=== PATIENT | male | born 1950 | race Caucasian/White ===

== ENCOUNTER 2017-12-22 07:58 | Inpatient (IN) | payer MEDICARE, BC ==
[2017-12-22] MEDS ORDERED: Acetaminophen 500 MG TAB ONE (08:23)
[2017-12-22 08:48] LABS: #Basophils 0.1 thou/uL (0.0-0.2); #Lymphocytes 0.2 thou/uL (1.20-3.40); #Monocytes 0.6 thou/uL (0.11-0.59); #Neutrophils 4.5 thou/uL (1.40-6.50); %Basophils 1.7 % (0.0-1.0); %Eosinophils 0.5 % (0.0-10.0); %Lymphocytes 3.3 % (21.0-51.0); %Monocytes 10.5 % (0.0-10.0); %Neutrophils 84.1 % (42.0-75.0); Hemoglobin 11.2 g/dL (14.0-18.0); Mean Corpuscular Hemoglobin 32.1 pg (27.0-31.0); Mean Corpuscular Volume 91.7 fl (80.0-94.0); Mean Platelet Volume 6.2 fL (7.4-10.4); Platelet Count 222 thou/uL (130-400); RBC Distribution Width 11.2 % (11.5-14.5); Red Blood Cell (RBC) Count 3.49 mill/uL (4.70-6.10); White Blood Cell (WBC) Count 5.4 thou/uL (4.8-10.8)
[2017-12-22 08:58] LABS: ALT (SGPT) 28 U/L (8-55); AST (SGOT) 30 U/L (5-34); Albumin 3.4 g/dL (3.4-4.8); Alkaline Phosphatase 91 U/L (40-150); Anion Gap 15 mmol/L (10-20); BUN (Urea Nitrogen) 14 mg/dL (8.4-25.7); Bilirubin, Total 0.9 mg/dL (0.2-1.2); CK (CPK) 53 U/L (30-200); Calc. Creatinine Clearance 0 mL/min (70-130); Calcium 9.2 mg/dL (7.8-10.44); Carbon Dioxide 28 mmol/L (23-31); Chloride 93 mmol/L (98-107); Estimated GFR-MDRD 56; Glucose 123 mg/dL (80-115); Lipase 19 U/L (8-78); Potassium 4.3 mmol/L (3.5-5.1); Protein, Total 6.4 g/dL (5.8-8.1); Sodium 132 mmol/L (136-145)
[2017-12-22 08:59] LABS: CKMB 0.9 ng/mL (0-6.6); Troponin I 0.039 ng/mL (< 0.028)
--- NOTE | 2017-12-22 09:09 | RAD ---
CHEST ONE VIEW: History: Dyspnea, fever. Stage IV lung cancer, on chemotherapy. Comparison: Two view chest 01-19-17 FINDINGS: There is a large mass in the peripheral aspect of the right upper lobe and middle lobe. Volume loss o f the right lung. No pneumothorax. Layering right effusion. There are multiple areas of sclerosis, right peripheral ribs. Severe degenerative change in both glenohumeral joints. IMPRESSION: 1. Large peripheral right middle lobe and right upper lobe mass, layering effusion with volume loss o f right lung. 2. Area of sclerosis, right ribs, may represent metastatic disease or treatment changes. 3. Chronic changes in the left lung base. 4. Severe degenerative disease at both acromioclavicular and glenohumeral joints. POS: OFF
[2017-12-22 09:33] LABS: Bilirubin Negative (Negative); Blood, Urine Negative (Negative); Clarity Clear (Clear); Glucose, Urine (Dipstick) Negative (Negative); Leukocyte Negative (Negative); Nitrite Negative (Negative); Protein, Urine (Dipstick) 30 mg/dL (Neg-Trace); Urobilinogen 0.2 mg/dL (0.2-1.0); pH, Urine 5.5 (5.0-9.0)
[2017-12-22 09:39] LABS: Specific Gravity, Urine Greater than 1.030 (1.002-1.036)
[2017-12-22 09:41] LABS: Bacteria/HPF None Seen HPF (None Seen); RBC/HPF 0-3 HPF (0-3); Squamous Epithelial 0-3 HPF (0-3); WBC/HPF None Seen HPF (0-3)
--- NOTE | 2017-12-22 09:56 | CT ---
CTA CHEST WITH CONTRAST: Date: 12/22/17 HISTORY: Lung cancer. Dyspnea. Colitis. COMPARISON: CT chest with contrast dated 01/19/17. TECHNIQUE: CT angiogram chest performed after the intravenous administration of contrast. 3D rendering provided. FINDINGS: There is nonopacification of the anterior segment right upper lobe pulmonary artery, similar to the c omparison examination. This is likely chronically occluded. The apical and posterior segments of the right upper lobe pulmonary arterial system are patent. Right middle lobe and lower lobe segmental bra nches are patent. The anterior and apical posterior branches of the left lower lobe pulmonary arterie s are patent, as well as lingular and left lower lobe pulmonary arteries. The pulmonary trunk size is normal. No evidence of right heart strain. No reflux of contrast within t he suprahepatic IVC. Compared to the comparison examination, the right upper lobe bronchiectasis and mass effect from the mass has decreased The peripheral right upper lobe mass is size decreased, extending to the hilum. Ov erall, this mass measures 4.7 x 4.3 x 3.7 cm, much improved from 9.5 x 7.5 cm mass previously noted. There was a second mass in the right middle lobe on the comparison examination, which is decreased in size, with only some peripheral scarring remaining. The right upper lobe bronchi are aerated, previously nonaerated. There are extensive increased inters titial markings in the right lower lobe and right middle lobe, which could be post treatment in natur e. Chronic appearing changes in the left lung. Mild emphysematous change. There is atrophy of the rotator cuff musculature bilaterally. There is large right joint effusion. Se kelvin degenerative disease of the right humeral head and glenohumeral joint with numerous bodies. There is an area of sclerosis right anterior fourth rib, unchanged. There appears to be an area of sc lerosis, possibly old metastatic disease, of the lateral right fifth rib, similar. The osseous remode ling through what appears to be a pathologic fracture right posterior 10th rib is similar with loss o f normal cortex of the medullary cavity of the rib head and neck. This is not progressed. The 10th ri b costochondral junction has a healing fracture. No new left-sided rib abnormality. Thoracic vertebra metastatic disease burden is similar with sclerosis of the 6th, 8th, and 9th thorac ic vertebra. There is minimal worsened height loss of the 9th vertebral body. No definite new areas o f osseous metastatic disease. There is a hypodensity in hepatic segment 7, similar to the comparison examination. IMPRESSION: 1. Overall, marked interval size decrease of the right upper lobe masses, with improved aeration of right upper lobe bronchus. 2. 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 This is unchang ed from the comparison examination. 3. No new segmental pulmonary arterial filling defect. 4. Multiple pathologic rib fractures are healing from the comparison examination without definite ne w evidence of osseous metastatic disease. 5. Severe degenerative disease of both shoulder joints, much worse on right, with large subchondral cyst of the right humeral head with a fracture line, series 10, image 8. 6. Minimal further height loss T9 vertebral body, osseous metastatic disease. POS: OFF
[2017-12-22] MEDS ORDERED: Sodium Chloride 0.9% 1,000 ML IV SCH (12:03)
[2017-12-22] MEDS ORDERED: Iopamidol 370 76% 100 ML VIAL ONE (12:57)
[2017-12-22] MEDS ORDERED: Aspirin 81 mg Enteric Coated Tablet PO SCH (13:00)
[2017-12-22] MEDS ORDERED: Ondansetron ODT 4 MG TAB PO PRN (17:00)
[2017-12-22] MEDS ORDERED: hydrALAZINE 20 MG/ML VIAL SLOW IVP PRN (17:00)
[2017-12-22] MEDS ORDERED: Benzonatate 100 MG CAP PO PRN (17:00)
[2017-12-22] MEDS ORDERED: cloNIDine 0.1 MG TAB PO PRN (17:00)
[2017-12-22] MEDS ORDERED: Ondansetron HCl/PF 4 MG/2 ML Vial IVP PRN (17:00)
[2017-12-22 17:13] VITALS: BMI 27.8
[2017-12-22] MEDS: Acetaminophen 500 MG TAB PO PRN (17:44)
[2017-12-22] MEDS: Ketorolac Tromethamine 30 MG/ML VIAL IVP SCH (17:45)
[2017-12-22] MEDS: Sodium Chloride 0.9% 1,000 ML IV SCH (18:28)
[2017-12-22] MEDS: Cefepime 2 GM, Syringe 2.5 ML in Sterile Water 10 ML SLOW IVP SCH (18:30)
[2017-12-22] MEDS ORDERED: Cefepime 2 GM in Sodium Chloride 0.9% 100 ML IVPB SCH (21:00)
[2017-12-22] MEDS ORDERED: Loperamide HCl 2 MG CAP PO PRN (21:11)
[2017-12-22] MEDS: Vancomycin HCl 1 GM in Premix Bag 1 BAG IVPB SCH (21:40)
[2017-12-22] MEDS: Famotidine 20 MG TAB PO SCH (21:41)
[2017-12-22] MEDS: guaiFENesin ER 600 MG TAB PO SCH (21:41)
--- NOTE | 2017-12-22 22:11 | HP ---
DATE OF ADMISSION: 12/22/2017 PRIMARY CARE PROVIDER: Dr. Todd Liz. CHIEF COMPLAINT: Fever and shortness of breath. HISTORY OF PRESENT ILLNESS: This is a 67-year-old male who initially presented to [facility] complaining of fever up to 105 degrees Fahrenheit by digital forehead thermome ter. Patient states his took his temperature and became alarmed, calling his primary oncologist who directed him to seek medical attention at the emergency room. Patient is currently receiving tr eatment for a stage IV non-small cell lung carcinoma through [facility], undergoing clinical trial t herapy as well as treatment with Keytruda. The patient was scheduled for followup at [facility] as his last treatment was over 2 months prior to this evaluation. Patient states his treatment was inte rrupted after a bout of colitis treated with budesonide as well as a prednisone, finishing the steroi d therapy within the last 5 days. Patient states he has noticed increased shortness of breath over t he last 2 weeks, worsening in the last 24-48 hours. Patient denies any prominent cough, but does not e the fever and shortness of breath. Patient states he underwent evaluation for the colitis includin g a colonoscopy confirming colitis and instituted on steroid therapy. In the emergency room, patient was evaluated with initial temperature documented 101 degrees Fahrenheit. Patient underwent chest i maging showing evidence of right-sided tumor and questionable early infiltrate. Patient also underwe nt CT angiogram and imaging of the chest showing evidence of chronic occlusion of the right upper lob e pulmonary artery. No new segmental pulmonary arterial filling defects were noted. Patient was als o noted with interval decrease in the right upper lobe mass with improved aeration of the right upper lobe bronchus. Patient was also noted with multiple pathological rib fractures, healing from prior osseous metastatic process, but no evidence of new disease noted. Patient was also noted with hypoxe abigail, placed on oxygen supplementation after initial O2 saturation was noted in the low 80% range. Th e patient received IV normal saline as well as Levaquin and bronchodilator therapy with DuoNebs. Georgina thakur was transferred to [facility] for further evaluation. PAST MEDICAL HISTORY: 1. Stage IV non-small cell lung carcinoma with current chemotherapy including Keytruda. 2. Colitis secondary to chemotherapy, improved. 3. Hypertension. 4. Remote tobacco use. 5. History of prostate carcinoma, status post radiation and radiotherapy. PAST SURGICAL HISTORY: 1. Status post cervical spine fusion. 2. Status post lumbar spine fusion. 3. Status post left rotator cuff repair. CURRENT MEDICATIONS: 1. Metoprolol 12.5 mg p.o. b.i.d. 2. DuoNeb 3 mL nebulized q.i.d. p.r.n. 3. Zofran 8 mg p.o. t.i.d. p.r.n. 4. Vitamin C 500 mg p.o. daily. 5. Citracal with vitamin D 1 tablet p.o. daily. 6. Clonazepam 0.5 mg 1-2 tabs p.o. at bedtime p.r.n. insomnia. 7. Folic acid 0.4 mg p.o. daily. 8. Multivitamin 1 tab p.o. daily. ALLERGIES: No known drug allergies. FAMILY HISTORY: Father with diabetes. Mother after complications of cardiomyopathy related to drug and alcohol abuse. SOCIAL HISTORY: Patient is and resides in the [facility]. Owns a [employer]. Remote history of tobacco use, quitting over 30 years prior to this evaluation. Smoked for 20 y ears previous. No alcohol or illicit drug use. REVIEW OF SYSTEMS: The following complete review of systems was negative, unless otherwise mentioned in the HPI or below: Constitutional: Weight loss or gain, ability to conduct usual activities. Sk in: Rash, itching. Eyes: Double vision, pain. ENT/Mouth: Nose bleeding, neck stiffness, pain, te nderness. Cardiovascular: Palpitations, dyspnea on exertion, orthopnea. Respiratory: Shortness of breath, wheezing, cough, hemoptysis, fever or night sweats. Gastrointestinal: Poor appetite, abdom inal pain, heartburn, nausea, vomiting, constipation, or diarrhea. Genitourinary: Urgency, frequenc y, dysuria, nocturia. Musculoskeletal: Pain, swelling. Neurologic/Psychiatric: Anxiety, depressio n. Allergy/Immunologic: Skin rash, bleeding tendency. PHYSICAL EXAMINATION: VITAL SIGNS: On admission, blood pressure 157/76, pulse 110, respiratory rate 28, temperature 100.6 degrees Fahrenheit, O2 saturation 89% on room air. GENERAL APPEARANCE: This is a 67-year-old male, alert and oriented x3, pleasant, conversan t and in mild to moderate respiratory distress. HEENT: Pupils are equal, round, and reactive to light and accommodation. Extraocular muscles are in tact. No scleral icterus, no conjunctival injection. Nares patent. OP is clear. Oral mucosa dry. NECK: Supple. No cervical adenopathy, no thyromegaly, no carotid bruits, no JVD appreciated. Cervi liz spine with full active and passive range of motion. No meningeal signs appreciated. CHEST: Diminished breath sounds in the right lung base. Coarse breath sounds in the right lung base . Occasional expiratory wheeze noted. CARDIOVASCULAR: S1, S2 with tachycardia. ABDOMEN: Rounded, soft, nontender, nondistended. Bowel sounds are positive in all four quadrants. There is no hepatosplenomegaly, no abdominal bruits, no rebound or guarding appreciated. EXTREMITIES: Warm and dry with fair turgor. No clubbing, cyanosis or asymmetric edema appreciated. Pulses palpable distally at the dorsalis pedis, posterior tibial, and popliteal arteries bilaterally . Capillary refill less than 2 seconds. NEUROLOGIC: Cranial nerves II-XII are grossly intact. No focal or lateralizing signs appreciated. PERTINENT LABORATORY AND X-RAY FINDINGS: Sodium 132, potassium 4.3, chloride 93, CO2 of 28, BUN 14, creatinine 1.27, estimated GFR 56, glucose 123. Lactic acid level 1.3, calcium 9.2. LFTs within nor mal limits. Troponin I 0.039, BNP 114. Albumin 3.4, lipase 19. CBC showed a white blood cell count of 5.4, hemoglobin 11, hematocrit 32, platelet count 222 with 84% neutrophils. Urinalysis positive for protein. Influenza A and B antigen dated 12/22/2017 negative. Portable chest x-ray dated 2017 showed large peripheral right middle lobe and right upper lobe lung mass with layering effusion and volume loss of the right lung. Elevated right hemidiaphragm. Overall, volume loss of the right lung noted. Chronic changes of the left lung base noted. Sclerosis of the right ribs likely seconda ry to history of metastatic process. Severe degenerative changes of the acromioclavicular and glenoh umeral joints on the right. CT angiogram of the chest dated 12/22/2017 showed marked interval decrea se in size of the right upper lobe mass with improved aeration of the right upper lobe bronchus. Chr onic occlusion of the right upper lobe pulmonary artery. No new segmental pulmonary arterial filling defects. Multiple pathologic rib fractures, healing without evidence of new osseous metastatic proc ess. Severe degenerative joint disease. EKG dated 12/22/2017 shows sinus tachycardia with heart rat es in the 110s. Normal R-wave progression noted in the precordial leads. Right bundle-branch block pattern noted. Normal axis. No acute ST-T wave changes appreciated. ASSESSMENT AND PLAN: 1. Question of community-acquired pneumonia. Patient will be admitted to the telemetry unit. Suspe ct gram positive cocci given patient's history of lung carcinoma with anatomical changes and prior ra diation /chemotherapy with prior changes secondary to chemotherapy. We will continue broad spectrum IV antibiotic therapy with cefepime 2 grams IV q.12 hours with additional vancomycin 1 gram IV q.12 h ours, DuoNeb q.6 hours p.r.n. Continue intravenous fluids with normal saline at 100 mL per hour. Co ntinue general pulmonary supportive measures and monitor blood culture results. 2. Acute hypoxic respiratory failure. Suspect secondary to #1. We will continue oxygen supplementa tion to maintain O2 saturations greater than or equal to 90%. Continue bronchodilator therapy with D uoNebs. 3. Stage IV non-small cell lung carcinoma with current chemotherapy. We will continue supportive me asures as outlined previously. Oxygen supplementation to maintain O2 saturation greater than 90%. 4. Hyponatremia, mild. We will continue intravenous normal saline and repeat sodium level in the a. m. 5. Chronic normocytic anemia secondary to chemotherapy. No current evidence to suggest acute blood loss. Repeat CBC in the a.m. and monitor hemoglobin trend. 6. Hypertension. We will resume home antihypertensive regimen with metoprolol 12.5 mg p.o. b.i.d. 7. Prophylaxis. Sequential compression devices while in bed. Pepcid 20 mg p.o. b.i.d. Influenza a nd Pneumovax are up to date. 8. CODE STATUS is FULL. Surrogate medical decision maker is patient's spouse.
[2017-12-23] MEDS: Ketorolac Tromethamine 30 MG/ML VIAL IVP SCH ×5 (00:18→22:42)
[2017-12-23] MEDS: Sodium Chloride 0.9% 1,000 ML IV SCH ×2 (01:33→14:26)
[2017-12-23] MEDS: Cefepime 2 GM, Syringe 2.5 ML in Sterile Water 10 ML SLOW IVP SCH ×2 (05:36→18:40)
[2017-12-23 05:40] LABS: ALT (SGPT) 17 U/L (8-55); AST (SGOT) 22 U/L (5-34); Alkaline Phosphatase 75 U/L (40-150); Anion Gap 10 mmol/L (10-20); BUN (Urea Nitrogen) 14 mg/dL (8.4-25.7); Bilirubin, Total 0.8 mg/dL (0.2-1.2); Calc. Creatinine Clearance 67 mL/min (70-130); Calcium 8.4 mg/dL (7.8-10.44); Carbon Dioxide 26 mmol/L (23-31); Chloride 98 mmol/L (98-107); Estimated GFR-MDRD 58; Globulin 2.4 g/dL (2.4-3.5); Glucose 98 mg/dL (80-115); Potassium 3.7 mmol/L (3.5-5.1); Protein, Total 5.4 g/dL (5.8-8.1); Sodium 130 mmol/L (136-145)
[2017-12-23] MEDS: Acetaminophen 500 MG TAB PO PRN ×2 (05:44→20:09)
[2017-12-23 05:50] LABS: Band 28 % (5-11); Hemoglobin 10.2 g/dL (14.0-18.0); Lymphocytes 4 % (21-51); MDiff Complete? YES; Mean Corpuscular HGB CONC 33.3 g/dL (32.0-36.0); Mean Corpuscular Hemoglobin 32.6 pg (27.0-31.0); Mean Corpuscular Volume 97.7 fl (80.0-94.0); Mean Platelet Volume 6.5 fL (7.4-10.4); Monocytes 11 % (0-10); Neutrophil 57 % (42-75); Platelet Count 214 thou/uL (130-400); RBC Distribution Width 12.4 % (11.5-14.5); Red Blood Cell (RBC) Count 3.14 mill/uL (4.70-6.10); White Blood Cell (WBC) Count 3.6 thou/uL (4.8-10.8)
[2017-12-23] MEDS ORDERED: FLU VACC TS2017-18 (>65YR) 0.5 ML SYRINGE IM ONE (09:00)
[2017-12-23] MEDS ORDERED: Prevnar 13-Val Conj/PF 0.5 ML SYRINGE IM ONE (09:00)
[2017-12-23] MEDS: Multivitamin W/ Minerals 1 TAB PO SCH (10:33)
[2017-12-23] MEDS: Ascorbic Acid 500 mg Chewable Tablet PO SCH (10:33)
[2017-12-23] MEDS: guaiFENesin ER 600 MG TAB PO SCH ×2 (10:35→20:03)
[2017-12-23] MEDS: Famotidine 20 MG TAB PO SCH ×2 (10:35→20:05)
[2017-12-23] MEDS: Senokot 8.6 MG TAB PO SCH (10:35)
[2017-12-23] MEDS: Calcium Carbonate + Vit D 1 TAB PO SCH (10:35)
[2017-12-23] MEDS: Folic Acid 1 MG TAB PO SCH (10:35)
--- NOTE | 2017-12-23 10:42 | PDOC.PN ---
- Subjective Encounter Start Date: 12/23/17 Encounter Start Time: 10:10 Subjective: f/u for febrile illness and suspected PNA in context of NSCLC and chemotx. -: Feels better overall. Fever spike overnight with some chills. Initial blood -: cx and Influenza neg. - Objective Resuscitation Status: Resuscitation Status FULL:Full Resuscitation MAR Reviewed: Yes Vital Signs & Weight: Vital Signs (12 hours) Temp Pulse Resp BP BP Pulse Ox 12/23/17 07:19 97 12/23/17 07:17 99.3 F 104 H 20 136/67 98 12/23/17 06:38 100.5 F H 12/23/17 05:41 102.7 F H 109 H 20 138/69 93 L 12/23/17 00:09 97.8 F 89 20 133/71 95 Weight Weight 183 lb 6 oz I&O: 12/22/17 12/23/17 12/24/17 06:59 06:59 06:59 Intake Total 3940 Balance 3940 Result Diagrams: 12/23/17 04:38 12/23/17 04:38 Additional Labs: Microbiology 12/22/17 08:20 Nasal swab Influenza Types A,B Direct EIA - Final 12/22/17 09:20 Urine voided Urine Culture - Preliminary 12/22/17 08:36 Venous blood - Left Arm Blood Culture - Preliminary Specimen has been received and culture in progress. No Growth to date. 12/22/17 08:29 Venous blood - Left Arm Blood Culture - Preliminary Specimen has been received and culture in progress. No Growth to date. Laboratory Tests 12/22/17 12/22/17 12/23/17 08:29 08:29 04:38 WBC 5.4 Hgb 11.2 L Neutrophils % (Manual) 57 Band Neuts % (Manual) 28 H Sodium 132 L EKG Reviewed by me: Yes (Tele - SR) Phys Exam - Physical Examination Constitutional: NAD HEENT: PERRLA, oral pharynx no lesions Neck: no JVD, supple scattered rhonchi in R lung base Respiratory: no wheezing Cardiovascular: RRR Gastrointestinal: soft, non-tender, no distention, positive bowel sounds Musculoskeletal: no edema, pulses present Neurological: normal sensation, moves all 4 limbs Psychiatric: A&O x 3 Skin: normal turgor, cap refill <2 seconds Dx/Plan (1) Community acquired bacterial pneumonia Code(s): J15.9 - UNSPECIFIED BACTERIAL PNEUMONIA Status: Acute Comment: Suspected gm + cocci, continue Cefepime and Vancomycin, add Levaquin due to fever elevation, await final cx results, viral pathogen PCR pending (2) Acute respiratory failure with hypoxia Code(s): J96.01 - ACUTE RESPIRATORY FAILURE WITH HYPOXIA Status: Acute Comment: Continue O2 supplementation and titrate to clinical response, Angela (3) Non-small cell carcinoma of left lung, stage 4 Code(s): C34.92 - MALIGNANT NEOPLASM OF UNSP PART OF LEFT BRONCHUS OR LUNG Status: Chronic Comment: Chemotherapy on hold due to recent colitis and now current PNA, resume tx after infectious process resolves (4) Hyponatremia Code(s): E87.1 - HYPO-OSMOLALITY AND HYPONATREMIA Status: Chronic Comment: Mild, encourage reg diet (5) Normocytic anemia Code(s): D64.9 - ANEMIA, UNSPECIFIED Status: Chronic Comment: Stable, serial H/H - Plan plan discussed w/ family, continue antibiotics, director of social work, respiratory therapy, out of bed/ambulate, DVT proph w/SCDs Stable overall -: Add Levaquin 750mg IV daily -: Continue Cefepime and Vancomycin -: Saline lock IVF's -: Consult Pulmonology * AM lab: CBC * Start Florastor 250mg daily * Check stool studies, C. diff, cx, lactoferrin
[2017-12-23] MEDS ORDERED: Saccharomyces boulardii 250 MG CAP PO SCH ×2 (11:00→12:00)
[2017-12-23] MEDS: Vancomycin HCl 1 GM in Premix Bag 1 BAG IVPB SCH (12:32)
[2017-12-23] MEDS: metroNIDAZOLE 500 MG TAB PO SCH (20:15)
--- NOTE | 2017-12-23 23:14 | CON ---
DATE OF CONSULTATION: 12/23/2017 SERVICE: Pulmonary Medicine. REASON FOR CONSULTATION: Respiratory failure. HISTORY OF PRESENT ILLNESS: The patient is a 67-year-old white male with past medical history significant for extensive stage IV adenocarcinoma. He failed multiple rounds of chemotherapy and ultimately, had progression of disease. He was placed on Keytruda, and a trial drug at [facility]. Since then, he has had resolution of much of his cancer involvement. He chronically is short of breath. The patient has a nonfunctioning right diaphragm. He previously had occlusion of much of the right upper lobe, which is actually improving slightly. In this setting, he started feeling a lack of energy over the last couple of days. His shortness of breath specifically did not get too much worse. He was not coughing or bringing up any significant sputum. His took his temperature and his thermometer rate of 105 degrees. They repeated the temperature in the emergency department and he was 102 degrees despite the fact that his home thermometer once again reported of 104 degree temperature. He has not had any sick contacts. He recently finished a course of prednisone that has been tapered away over the past several weeks. He has had a recurrence of his diarrhea since discontinuing the prednisone starting yesterday. Otherwise, he denies any focalizing symptoms. He has not had any itchy watery eyes, sore throat, drainage from the back of the nose or throat, arthralgias, or new rashes. PAST MEDICAL HISTORY: 1. Adenocarcinoma of the lung, widely metastatic. 2. Hypertension. 3. History of tobacco abuse. 4. History of prostate cancer, status radiotherapy. PAST SURGICAL HISTORY: 1. C-spine fusion. 2. Lumbar spine fusion. 3. Left rotator cuff repair. ALLERGIES: No known drug allergies. MEDICATIONS: List of his inpatient medications were reviewed. A couple of small updates were only made. FAMILY HISTORY: Noncontributory. SOCIAL HISTORY: The patient is and lives in [place], [place]. He has a 20- pack-year history of smoking, but quit 30 years ago. Denies any alcohol or illicit drugs. He has no exposure to chemicals, dust asbestos or tuberculosis. He owns a construction business. REVIEW OF SYSTEMS: General, head, ears, eyes, nose, throat, cardiovascular, respiratory, GI, , musculoskeletal, neurologic and skin is negative except as mentioned in the HPI. PHYSICAL EXAMINATION: VITAL SIGNS: Currently afebrile. His T-max over the past 24 hours has been 102.7, pulse 100, blood pressure 113/63, respirations 20, saturation 91% on room air. GENERAL: The patient is awake and alert, in no apparent distress. LUNGS: Decent air entry on the left. There is decreased air entry on the right. No prolonged expiratory phase, wheezing, rhonchi, or crackles are appreciated. HEART: Normal rate, regular. ABDOMEN: Soft, nontender, nondistended. Bowel sounds are positive. MUSCULOSKELETAL: No cyanosis or clubbing. No pitting in the bilateral lower extremities. NEUROLOGIC: Grossly nonfocal. LABORATORY DATA: WBC 3.6, hemoglobin 10.2, platelets 214,000. Band count is 28 % on top of 57% neutrophils. Basic metabolic profile and liver function studies are unremarkable except for sodium of 130. Troponin is 0.039. Lipase is 19. BNP . Urinalysis is unremarkable. Respiratory virus pathogen assay is unremarkable. Urine culture and blood cultures x2 were negative to date. Influenza A and B is also negative. IMAGING: CTA of the chest demonstrates no evidence of acute pulmonary embolism. There is chronic occlusion of the right upper lobe pulmonary artery anterior and apical segments. This is unchanged from a prior evaluation. There was marked improvement in the right lung masses. Improved aeration of the right upper lobe. No obvious infiltrate or effusion is identified. Healed rib fractures are identified. ASSESSMENT: 1. Sepsis. 2. Fever of unknown origin. 3. Diarrhea. 4. Adenocarcinoma of the lung, widely metastatic on trial medication, and Keytruda. PLAN: The patient is doing fairly well at this time. His only focalizing symptom currently is diarrhea, we will send off for C. difficile antigen and toxin. I will discontinue the IV vancomycin and add Flagyl. We will follow cultures and otherwise continue general supportive care. Pulmonary Critical Care will continue to follow while the patient remains in this location. IV fluids will be interrupted. ABG will be obtained to see if the patient is a chronic CO2 retainer given his paralysis of the right hemidiaphragm. 70 minutes have been devoted to this patient in various activities. I personally reviewed all imaging studies and laboratory data noted within this document. For at least half of this time, I was interacting with the patient at the bedside or coordinating care with the care team. For the remainder of the time I was immediately available to the patient in the hospital unit. THERESA
[2017-12-24 00:06] LABS: Actual Bicarbonate (HCO3a) 21.5 mEq/L (22-26); Base Excess (BEa) -2.1 mEq/L (0 (+/-) 2.5); CO2 Tension 32.1 mmHg (35.0-45.0); O2 Tension (PaO2) 80.7 mmHg (80.0-100.0); pH, Arterial 7.44 (7.35-7.45)
[2017-12-24 00:07] LABS: Hemoglobin (Hb) 8.6 g/dL (14.0-18.0)
[2017-12-24 00:08] LABS: ALV-art Gradient 105.735 (0-20); Calcium, Ionized 1.1 mmol/L (1.12-1.30); Puncture Site RRA
[2017-12-24] MEDS: Ketorolac Tromethamine 30 MG/ML VIAL IVP SCH ×3 (06:43→18:29)
[2017-12-24] MEDS: Cefepime 2 GM, Syringe 2.5 ML in Sterile Water 10 ML SLOW IVP SCH ×2 (06:43→18:30)
[2017-12-24] MEDS: Ascorbic Acid 500 mg Chewable Tablet PO SCH (09:12)
[2017-12-24] MEDS: guaiFENesin ER 600 MG TAB PO SCH ×2 (09:13→21:44)
[2017-12-24] MEDS: Famotidine 20 MG TAB PO SCH ×2 (09:13→21:44)
[2017-12-24] MEDS: Saccharomyces boulardii 250 MG CAP PO SCH (09:13)
[2017-12-24] MEDS: Senokot 8.6 MG TAB PO SCH (09:13)
[2017-12-24] MEDS: metroNIDAZOLE 500 MG TAB PO SCH ×3 (09:13→21:44)
[2017-12-24] MEDS: Multivitamin W/ Minerals 1 TAB PO SCH (09:14)
[2017-12-24] MEDS: Folic Acid 1 MG TAB PO SCH (09:14)
[2017-12-24] MEDS: Calcium Carbonate + Vit D 1 TAB PO SCH (09:14)
[2017-12-24] MEDS: Acetaminophen 500 MG TAB PO PRN (14:08)
[2017-12-24] MEDS ORDERED: Furosemide 20 MG/2 ML VIAL SLOW IVP SCH (16:30)
[2017-12-24 16:49] LABS: Troponin I 0.051 ng/mL (< 0.028)
--- NOTE | 2017-12-24 17:02 | PRG ---
DATE OF SERVICE: 12/24/2017 SERVICE: Pulmonary Medicine. INTERVAL HISTORY: The patient is doing fine from a respiratory standpoint. He denies any chest pain, nausea or vomiting. He is continuing to have some intermittent episodes of diarrhea. He had an episode of fever associated with some shortness of breath when he went to the bathroom. After getting his oxygen back on, and lying down, he settled down after about 2-3 minutes. Otherwise, there has been no interval change to his condition. PHYSICAL EXAMINATION: VITAL SIGNS: Afebrile currently with a T-max of 99.8. Pulse 93, blood pressure 120/68, respirations 22, saturation 95% on 3 liters nasal cannula. GENERAL: The patient is awake and alert, in no apparent distress. LUNGS: Decent air entry. There is no prolonged expiratory phase or wheezing identified. Decreased air entry is present on the right with crackles there. He has excellent air entry on the left. HEART: Normal rate, regular. ABDOMEN: Soft, nontender, nondistended. Bowel sounds are positive. MUSCULOSKELETAL: No cyanosis or clubbing. There is trace to 1+ pitting in the bilateral lower extremities. LABORATORY DATA: Urinalysis is unremarkable. C. diff antigen and toxin were negative. Stool lactoferrin is positive. Campylobacter and Shiga toxins are negative. Respiratory virus panel is unremarkable. Urinalysis, blood cultures x2 and influenza A and B are negative. ASSESSMENT: 1. Sepsis. 2. Diarrhea. 3. Fever without focalizing symptoms. 4. Adenocarcinoma of the lung, widely metastatic on trial medication and Keytruda. 5. Recent colitis associated with one of those medications that responded to steroid therapy. DISCUSSION AND PLAN: We will continue our empiric antibiotics and other supportive measures. The patient is requesting an ID consultation because he recently had some travel. We will give him 1 dose of Lasix today. Pulmonary Critical Care will continue to follow while the patient remains in this location. The blood gas was not associate with chronic CO2 retention. MTDD
[2017-12-24 18:26] LABS: % Infected Cells W/Parasite No parasites seen
--- NOTE | 2017-12-24 23:31 | PDOC.PN ---
- Subjective Encounter Start Date: 12/24/17 Encounter Start Time: 17:00 Subjective: nsg notes rev, another febrile episode this afternoon. @ bedside -: reviewed H&P notable additions: 2 mos ago was on cruise to [place], no -: overt sick contacts. also recently D/C off prednisone - Objective Resuscitation Status: Resuscitation Status FULL:Full Resuscitation Vital Signs & Weight: Vital Signs (12 hours) Temp Pulse Resp BP Pulse Ox 12/24/17 15:40 95 12/24/17 15:37 99.8 F H 93 22 H 120/68 95 12/24/17 14:00 102.5 F H 12/24/17 12:48 97 12/24/17 12:42 108 H 24 H 12/24/17 12:22 26 H 82 L 12/24/17 11:50 99.3 F 99 22 H 128/66 Weight Weight 183 lb 6 oz I&O: 12/23/17 12/24/17 12/25/17 06:59 06:59 06:59 Intake Total 3940 1101 1000 Output Total 50 Balance 3940 1101 950 Result Diagrams: 12/23/17 04:38 12/23/17 04:38 Phys Exam - Physical Examination Constitutional: NAD HEENT: PERRLA, moist MMs Neck: no nodes, no JVD Respiratory: no rales, no rhonchi Cardiovascular: RRR, no significant murmur, no rub Gastrointestinal: soft, non-tender, no distention, positive bowel sounds Musculoskeletal: no edema, pulses present Neurological: moves all 4 limbs Psychiatric: normal affect, A&O x 3 Skin: normal turgor, cap refill <2 seconds Dx/Plan (1) Acute respiratory failure with hypoxia Code(s): J96.01 - ACUTE RESPIRATORY FAILURE WITH HYPOXIA Status: Acute Comment: Continue O2 supplementation and titrate to clinical response, Angela (2) Non-small cell carcinoma of left lung, stage 4 Code(s): C34.92 - MALIGNANT NEOPLASM OF UNSP PART OF LEFT BRONCHUS OR LUNG Status: Chronic Comment: Chemotherapy on hold due to recent colitis and now current PNA, resume tx after infectious process resolves (3) Lung cancer Code(s): C34.90 - MALIGNANT NEOPLASM OF UNSP PART OF UNSP BRONCHUS OR LUNG Status: Chronic Qualifiers: Laterality: right Lung location: upper lobe of lung Qualified Code(s): C34.11 - Malignant neoplasm of upper lobe, right bronchus or lung Comment: on Chemo (4) Arrhythmia Code(s): I49.9 - CARDIAC ARRHYTHMIA, UNSPECIFIED Status: Resolved Qualifiers: Atrial fibrillation type: unspecified - Plan * febrile illness * recurrent despite empiric abx which currently incl: vanc, cef, levaquin, flagyl for coverage * ? related to steroid taper off too rapidly? * ? atypical infection? appreciate ID c/s * ? fungal due to relative immunosuppressed state from 8 wks oral prednisone therapy at 20mg+ * check: HIV, hepatitis panel, viral panel, quantiferon gold, AM cortosl * resume prednisone 20 * empiric diflucan * d/w pulmonary med today, d/w patient's (greater 30 min spent at bedside discussing plan of care) * Review of Systems - Medications/Allergies Allergies/Adverse Reactions: Allergies Allergy/AdvReac Type Severity Reaction Status Date / Time No Known Allergies Allergy Verified 12/22/17 16:18 Medications: Current Medications Acetaminophen (Tylenol) 1,000 mg PO Q6H PRN PRN Reason: Headache/Fever or Mild Pain Last Admin: 12/24/17 14:08 Dose: 1,000 mg Albuterol/Ipratropium (Duoneb) 3 ml NEB [id number] PRN PRN Reason: SOB &/or Wheezing Last Admin: 12/24/17 12:42 Dose: 3 ml Ascorbic Acid (Vitamin C) 500 mg PO DAILY [facility] Last Admin: 12/24/17 09:12 Dose: Not Given Calcium/Vitamin D (Caltrate 600 + Vit D) 1 tab PO DAILY [facility] Last Admin: 12/24/17 09:14 Dose: 1 tab Clonazepam (Klonopin) 0.5 mg PO HSPRN PRN PRN Reason: Insomnia Clonidine (Catapres) 0.1 mg PO Q4H PRN PRN Reason: Systolic BP > 180 Famotidine (Pepcid) 20 mg PO BID [facility] Last Admin: 12/24/17 21:44 Dose: 20 mg Folic Acid (Folvite) 1 mg PO DAILY [facility] Last Admin: 12/24/17 09:14 Dose: Not Given Guaifenesin (Mucinex) 1,200 mg PO Q12HR [facility] Last Admin: 12/24/17 21:44 Dose: 1,200 mg Hydralazine HCl (Apresoline) 10 mg SLOW IVP Q4H PRN PRN Reason: Systolic BP > 180 Cefepime HCl 2 gm/ Syringe 2.5 (ml/ Sterile Water) 12.5 mls @ 150 mls/hr SLOW IVP 0600,1800 [facility] Last Admin: 12/24/17 18:30 Dose: 12.5 mls Levofloxacin 750 mg/ Device 150 mls @ 100 mls/hr IVPB Q24HR [facility] Last Admin: 12/24/17 09:26 Dose: 150 mls Fluconazole/Sodium Chloride (200 mg/ Device) 100 mls @ 100 mls/hr IVPB DAILY [facility] Iron/Minerals/Multivitamins (Theragran M) 1 tab PO DAILY [facility] Last Admin: 12/24/17 09:14 Dose: 1 tab Ketorolac Tromethamine (Toradol) 30 mg IVP Q6HR [facility] Stop: 12/27/17 18:01 Last Admin: 12/24/17 18:29 Dose: 30 mg Loperamide HCl (Imodium) 2 mg PO Q8H PRN PRN Reason: Diarrhea/Loose Stools Last Admin: 12/23/17 05:55 Dose: 2 mg Metoprolol Succinate (Toprol Xl) 12.5 mg PO BID [facility] Last Admin: 12/24/17 21:44 Dose: 12.5 mg Metronidazole (Flagyl) 500 mg PO TID [facility] Last Admin: 12/24/17 21:44 Dose: 500 mg Ondansetron HCl (Zofran Odt) 4 mg PO Q6H PRN PRN Reason: Nausea/Vomiting Ondansetron HCl (Zofran) 4 mg IVP Q6H PRN PRN Reason: Nausea/Vomiting Prednisone (Prednisone) 20 mg PO QAM[facility] Saccharomyces Boulardii (Florastor) 250 mg PO DAILY [facility] Last Admin: 12/24/17 09:13 Dose: 250 mg Senna (Senokot) 1 tab PO DAILY [facility] Last Admin: 12/24/17 09:13 Dose: Not Given Sodium Chloride (Flush - Normal Saline) 10 ml IVF Q12HR [facility] Last Admin: 12/24/17 21:45 Dose: 10 ml Sodium Chloride (Flush - Normal Saline) 10 ml IVF PRN PRN PRN Reason: Saline Flush
[2017-12-25] MEDS: Ketorolac Tromethamine 30 MG/ML VIAL IVP SCH ×4 (00:29→18:05)
[2017-12-25] MEDS: clonazePAM 0.5 MG TAB PO PRN ×2 (00:31→20:42)
[2017-12-25] MEDS: Cefepime 2 GM, Syringe 2.5 ML in Sterile Water 10 ML SLOW IVP SCH ×2 (06:02→18:05)
[2017-12-25] MEDS ORDERED: Fluconazole In NaCl,Iso-Osm 200 MG in Premix Bag 1 BAG IVPB SCH (09:00)
[2017-12-25 09:04] LABS: ALT (SGPT) 16 U/L (8-55); AST (SGOT) 23 U/L (5-34); Albumin 3.1 g/dL (3.4-4.8); Alkaline Phosphatase 88 U/L (40-150); Anion Gap 14 mmol/L (10-20); BUN (Urea Nitrogen) 19 mg/dL (8.4-25.7); Bilirubin, Total 0.6 mg/dL (0.2-1.2); Calc. Creatinine Clearance 60 mL/min (70-130); Calcium 9.4 mg/dL (7.8-10.44); Carbon Dioxide 23 mmol/L (23-31); Chloride 100 mmol/L (98-107); Estimated GFR-MDRD 52; Globulin 2.8 g/dL (2.4-3.5); Glucose 102 mg/dL (80-115); Protein, Total 5.9 g/dL (5.8-8.1); Sodium 133 mmol/L (136-145)
[2017-12-25 09:24] LABS: HBSAg Index 0.23 S/CO (0-0.99); HIV (1/2) Antibody/Antigen Non-Reactive (NonReactive); HIV 1/2 INDEX 0.19 S/CO (<1.00); Hep A IgM AB Non-Reactive (NonReactive); Hep A IgM S/CO 0.09 S/CO (0-0.79); Hep B Surf Ag Non-Reactive S/CO (NonReactive); Hep C IgG Ab Non-Reactive (NonReactive); Hep C Index 0.09 S/CO (0-0.79); Hepatitis B Core IGM Abs Non-Reactive (NonReactive)
[2017-12-25 09:31] LABS: Band 31 % (5-11); Eosinophils 2 % (0-10); Hemoglobin 10.3 g/dL (14.0-18.0); Lymphocytes 7 % (21-51); MDiff Complete? YES; Mean Corpuscular HGB CONC 33.3 g/dL (32.0-36.0); Mean Corpuscular Hemoglobin 32.9 pg (27.0-31.0); Mean Corpuscular Volume 98.5 fl (80.0-94.0); Mean Platelet Volume 6.3 fL (7.4-10.4); Monocytes 4 % (0-10); Neutrophil 56 % (42-75); Platelet Count 302 thou/uL (130-400); RBC Distribution Width 12.6 % (11.5-14.5); Red Blood Cell (RBC) Count 3.14 mill/uL (4.70-6.10); White Blood Cell (WBC) Count 4.2 thou/uL (4.8-10.8)
[2017-12-25] MEDS: Senokot 8.6 MG TAB PO SCH (11:17)
[2017-12-25] MEDS: guaiFENesin ER 600 MG TAB PO SCH ×2 (11:17→20:40)
[2017-12-25] MEDS: Saccharomyces boulardii 250 MG CAP PO SCH (11:17)
[2017-12-25] MEDS: Ascorbic Acid 500 mg Chewable Tablet PO SCH (11:17)
[2017-12-25] MEDS: Calcium Carbonate + Vit D 1 TAB PO SCH (11:18)
[2017-12-25] MEDS: metroNIDAZOLE 500 MG TAB PO SCH (11:18)
[2017-12-25] MEDS: Folic Acid 1 MG TAB PO SCH (11:20)
[2017-12-25] MEDS: Famotidine 20 MG TAB PO SCH ×2 (11:24→20:40)
[2017-12-25] MEDS: Multivitamin W/ Minerals 1 TAB PO SCH (11:24)
[2017-12-25] MEDS: predniSONE 20 MG TAB PO SCH (11:26)
--- NOTE | 2017-12-25 12:02 | CT ---
ABDOMEN AND PELVIC CT SCAN WITH IV CONTRAST: HISTORY: A 69-9yo male with fever and diarrhea. History of prostate CA and stage IV lung cancer with concern for colonic abscess. There is prominent elevation of the right hemidiaphragm. There are pleural and parenchymal changes, particularly in the right lower chest with an approximately 3 cm diameter pleur al mass at the level of the right minor fissure. A small 0.3 cm diameter pleural-based nodule in the lingula laterally. There are several areas of rib deformity possibly related to old trauma, althoug h with the history of lung cancer it is conceivable some of these changes could possibly represent so me metastatic bone changes. There is an irregularly shaped 0.8 cm diameter focal low attenuation are a in the upper right lobe of the liver, nonspecific. The pancreas, spleen, and adrenal glands are un remarkable. No evidence of renal calculus or acute obstruction. No CT evidence for acute appendi citis. Sclerotic bone changes in several of the lumbar vertebral bodies including L2, L3, and L4 as well as a more extensive area of abnormal heterogeneous sclerotic change within the T8 vertebral body . The T8 vertebral body is certainly suspicious for bone metastasis. No evidence of large or small bowel obstruction. No adenopathy, abscess, or abnormal fluid collection within the abdomen or pelvis . Bilateral fat-containing inguinal hernias. IMPRESSION: Right hemidiaphragm elevation with some pleural and parenchymal opacity changes in the right base wit h a several centimeter nodular focus near the level of the right minor fissure. Bone changes worriso me for the possibility of metastasis. A 0.8 cm diameter nonspecific low-attenuation focus in the med ial right lobe of the liver. Postoperative prostatectomy changes with numerous radiation implant see ds. Other findings as above. POS: DERECK
[2017-12-25] MEDS ORDERED: Cosyntropin 250 MCG VIAL SLOW IVP SCH (15:30)
[2017-12-25] MEDS: Acetaminophen 500 MG TAB PO PRN (16:07)
--- NOTE | 2017-12-25 16:32 | PDOC.PN ---
- Subjective Encounter Start Date: 12/25/17 Encounter Start Time: 16:31 Subjective: nsg notes rev, kayla ovn, no new c/o, no further fevers today, overall feels -: better, is on RA. states he discussed with his and does not want to -: take any more prednisone because he is doing better - Objective Resuscitation Status: Resuscitation Status FULL:Full Resuscitation Vital Signs & Weight: Vital Signs (12 hours) Temp Pulse Resp BP Pulse Ox 12/25/17 12:00 97.5 F L 104 H 17 124/68 93 L 12/25/17 08:00 97.0 F L 96 18 119/63 92 L Weight Weight 184 lb I&O: 12/24/17 12/25/17 12/26/17 06:59 06:59 06:59 Intake Total 1101 1480 480 Output Total 50 Balance 1101 1430 480 Result Diagrams: 12/25/17 08:22 12/25/17 08:22 Phys Exam - Physical Examination Constitutional: NAD HEENT: PERRLA, moist MMs Respiratory: no wheezing, no rales Dx/Plan (1) Acute respiratory failure with hypoxia Code(s): J96.01 - ACUTE RESPIRATORY FAILURE WITH HYPOXIA Status: Acute Comment: Continue O2 supplementation and titrate to clinical response, Angela (2) Non-small cell carcinoma of left lung, stage 4 Code(s): C34.92 - MALIGNANT NEOPLASM OF UNSP PART OF LEFT BRONCHUS OR LUNG Status: Chronic Comment: Chemotherapy on hold due to recent colitis and now current PNA, resume tx after infectious process resolves (3) Lung cancer Code(s): C34.90 - MALIGNANT NEOPLASM OF UNSP PART OF UNSP BRONCHUS OR LUNG Status: Chronic Qualifiers: Laterality: right Lung location: upper lobe of lung Qualified Code(s): C34.11 - Malignant neoplasm of upper lobe, right bronchus or lung Comment: on Chemo - Plan * * febrile illness * recurrent despite empiric abx which currently incl: vanc, cef, levaquin, flagyl, diflucan * ? atypical infection? appreciate ID c/s * the following are all neg: HIV, hepatitis panel, viral panel, quantiferon gold * d/c prednisone which may be resonable as AM cortisol wnl otherwise continue supportive care * wean O2 as tone, t/c ICS diet: as tone activity: as tone Review of Systems - Medications/Allergies Allergies/Adverse Reactions: Allergies Allergy/AdvReac Type Severity Reaction Status Date / Time No Known Allergies Allergy Verified 12/22/17 16:18 Medications: Current Medications Acetaminophen (Tylenol) 1,000 mg PO Q6H PRN PRN Reason: Headache/Fever or Mild Pain Last Admin: 12/25/17 16:07 Dose: 1,000 mg Albuterol/Ipratropium (Duoneb) 3 ml NEB [id number] PRN PRN Reason: SOB &/or Wheezing Last Admin: 12/24/17 12:42 Dose: 3 ml Ascorbic Acid (Vitamin C) 500 mg PO DAILY [facility] Last Admin: 12/25/17 11:17 Dose: 500 mg Calcium/Vitamin D (Caltrate 600 + Vit D) 1 tab PO DAILY [facility] Last Admin: 12/25/17 11:18 Dose: 1 tab Clonazepam (Klonopin) 0.5 mg PO HSPRN PRN PRN Reason: Insomnia Last Admin: 12/25/17 00:31 Dose: 0.5 mg Clonidine (Catapres) 0.1 mg PO Q4H PRN PRN Reason: Systolic BP > 180 Cosyntropin (Cortrosyn) 250 mcg SLOW IVP [facility] Stop: 12/25/17 17:30 Last Admin: 12/25/17 16:07 Dose: 250 mcg Famotidine (Pepcid) 20 mg PO BID [facility] Last Admin: 12/25/17 11:24 Dose: 20 mg Folic Acid (Folvite) 1 mg PO DAILY [facility] Last Admin: 12/25/17 11:20 Dose: Not Given Guaifenesin (Mucinex) 1,200 mg PO Q12HR [facility] Last Admin: 12/25/17 11:17 Dose: Not Given Hydralazine HCl (Apresoline) 10 mg SLOW IVP Q4H PRN PRN Reason: Systolic BP > 180 Cefepime HCl 2 gm/ Syringe 2.5 (ml/ Sterile Water) 12.5 mls @ 150 mls/hr SLOW IVP 0600,1800 [facility] Last Admin: 12/25/17 06:02 Dose: 12.5 mls Fluconazole/Sodium Chloride (200 mg/ Device) 100 mls @ 100 mls/hr IVPB DAILY [facility] Last Admin: 12/25/17 11:45 Dose: 100 mls Iron/Minerals/Multivitamins (Theragran M) 1 tab PO DAILY [facility] Last Admin: 12/25/17 11:24 Dose: 1 tab Ketorolac Tromethamine (Toradol) 30 mg IVP Q6HR [facility] Stop: 12/27/17 18:01 Last Admin: 12/25/17 13:53 Dose: Not Given Loperamide HCl (Imodium) 2 mg PO Q8H PRN PRN Reason: Diarrhea/Loose Stools Last Admin: 12/23/17 05:55 Dose: 2 mg Metoprolol Succinate (Toprol Xl) 12.5 mg PO BID [facility] Last Admin: 12/25/17 11:17 Dose: 12.5 mg Ondansetron HCl (Zofran Odt) 4 mg PO Q6H PRN PRN Reason: Nausea/Vomiting Ondansetron HCl (Zofran) 4 mg IVP Q6H PRN PRN Reason: Nausea/Vomiting Prednisone (Prednisone) 20 mg PO QAM-[facility] Last Admin: 12/25/17 11:26 Dose: Not Given Saccharomyces Boulardii (Florastor) 250 mg PO DAILY [facility] Last Admin: 12/25/17 11:17 Dose: 250 mg Senna (Senokot) 1 tab PO DAILY [facility] Last Admin: 12/25/17 11:17 Dose: Not Given Sodium Chloride (Flush - Normal Saline) 10 ml IVF Q12HR [facility] Last Admin: 12/25/17 11:26 Dose: 10 ml Sodium Chloride (Flush - Normal Saline) 10 ml IVF PRN PRN PRN Reason: Saline Flush
--- NOTE | 2017-12-25 17:39 | CON ---
DATE OF CONSULTATION: 12/25/2017 REASON FOR CONSULTATION: Fever. HISTORY OF PRESENT ILLNESS: A 67-year-old who has a history of non-small cell lung cancer diagnosed in 03/2016. The pathology demonstrated adenocarcinoma. He was initially treated with weekly carboplatin and Taxol until 07/2016 when he was switched to the two pemetrexed having completed 6 cycles of that. He was admitted on 10/26/2016 with tachycardia and dyspnea with collapse of the right upper lobe. Patient was given nebulizations, corticosteroids and Mucinex. He was diagnosed with atelectasis of the right upper lobe with bronchial mucosal plugs. He was treated with antimicrobials and corticosteroids , Mucinex with improvement. I believe that [facility], [facility] of a clinical trial protocol including Keytruda, which is the brand name of pembrolizumab, which is a PD-1 checkpoint inhibitor. Last treatment of Keytruda was in September and as a consequence of this treatment, he developed immune associated colitis after having had an infectious etiology is ruled out. Patient was treated with prednisone and had been managed with a taper more recently and stopped taking corticosteroids for the past 5 days. Coincidentally, there has been worsening dyspnea, worsening cough and fever. He also has noticed some recrudescence of diarrhea. The patient was brought in and initial temperature was 101 to 102. Exam showed BP 150/70, pulse 110, respiratory rate 28, O2 sat 89% on room air. He appears in moderate respiratory distress. Neck was supple, no lymphadenopathy. Chest with diminished breath sounds in the right lung base. Heart exam showed tachycardia, otherwise normal. Abdomen was nontender, bowel sounds are present. Initial labs demonstrated white cell count 5.4, hemoglobin 11, MCV 91 , platelets 222 with 84% neutrophils, pH 7.4, pCO2 of 32, pO2 of 80. Chemistry with sodium 132, creatinine 1.27. Liver profile normal. Albumin 3.4. Urinalysis was normal. The patient had malaria smears because he had returned from [facility] vacation in a cruise ship and hepatitis serology was negative. Patient had a number of microbiology samples submitted. Influenza A and B and respiratory virus PCR panel were negative and the patient had 4 blood cultures, which have been negative thus far and C. diff antigen and toxin negative as well. Over the course of the past few days, there has been some temperature elevation intermittently up to 102.5. The most recent one was yesterday at 2:00 p.m., this currently is 97.5. He denies headaches, no visual symptoms, sore throat, odynophagia, dysphagia, no vomiting. A little bit of cough, no chest pain, no back pain, no abdominal pain. Still with some liquid stool intermittently. No genitourinary symptoms. No joint symptoms. No skin disorder noted. PAST MEDICAL HISTORY: Stage IV non-small cell lung cancer status post standard chemotherapy now on a clinical protocol with pembrolizumab through [facility]. Immune activation syndrome with colitis proven and treated with immunosuppressive agents, particularly prednisone, hypertension, prostate cancer treated with radiation therapy. PAST SURGICAL HISTORY: Cervical spine fusion, lumbar spine fusion, rotator cuff repair, left side. MEDICATIONS: Currently on Tylenol, DuoNeb, vitamin C, Caltrate, cefepime, Klonopin, Catapres, Pepcid, fluconazole, guaifenesin, hydralazine, ketorolac, levofloxacin, loperamide, Flagyl, ondansetron, prednisone has not been started yet, saccharomyces, senna, and sodium chloride. ALLERGIES: None. FAMILY HISTORY: Diabetes and cardiomyopathy. SOCIAL HISTORY: Owns a construction business, , lives in the area. Quit smoking more than 30 years prior. PHYSICAL EXAMINATION: GENERAL: Appears in no distress. VITAL SIGNS: The temperature max was 102.5 yesterday. He is afebrile now. BP 120/60, pulse 104, respirations 17, sat 92%. SKIN: Normal. Patient has peripheral IV access. No Salmon catheter. No lymphadenopathy. HEENT: Ocular movements are conjugate. Sclerae white. Oral cavity normal. Teeth in good shape. NECK: Supple. No jugular venous distention or carotid bruits. LUNGS: With symmetric air entry, except for the right lower base where there is a significant decrease in lung sounds, a few scattered crackles, but very faint S1, S2, without murmurs, regular rate. ABDOMEN: Soft and not distended or tender. No ascites. No bladder distention. EXTREMITIES: No joint inflammatory activity noted. Pulses are 1+ in dorsalis pedis. Plantar responses are flexure. Strength in upper and lower extremities is preserved. NEUROLOGIC: Cognitive function appears to be intact. LABORATORY AND X-RAY FINDINGS: Latest values with a white cell count 4.2, hemoglobin 10.3, platelets 302 with 56% neutrophils, 31% bands. Sodium 132, creatinine 1.27. Liver profile, repeat normal. Troponin was 0.051, albumin 3.0. Imaging studies included abdomen and pelvis CT done today and this demonstrated elevation of the right hemidiaphragm with some pleural and parenchymal opacity changes, metastatic bone changes, prostatectomy with seeds implants. The CT angio from 12/22/2017 with interval decrease in right upper lobe masses, chronic occlusion, right upper lobe pulmonary artery, unchanged. No new segmental pulmonary arterial filling defect, pathological rib fractures which are healing. There is a biopsy from the colon and ileum. The small intestine biopsy was nonspecific, large intestine with active colitis noted. ASSESSMENT: 1. Small cell lung cancer, metastatic, mostly to bone and with improvement in the size of the lung mass compared with previous imaging studies. 2. Treatment with PD-1 checkpoint inhibitor, pembrolizumab by [facility] through a clinical trials protocol, Proven colitis secondary to immune activation due to PD-1 checkpoint inhibitor, treated with immunosuppressive agent, prednisone. 3. Recent tapering off prednisone with recrudescence of temperature and diarrhea. DISCUSSION: Differential diagnoses includes recrudescence of the immune activation syndrome secondary to the persistent effects of PD-1 checkpoint inhibition versus an opportunistic infectious process from the immunosuppression. Endocrinopathy associated with PD-1 checkpoint inhibitor use also is possible, which sometimes can be associated with fever. Check Cortrosyn stimulation test, TSH, check some opportunistic pathogen assays. As recently as October he had evidence of active colitis and he may still have the immune activation syndrome, may have to have immunosuppression restarted. The patient would rather not do that at this point and I think we can go ahead and discontinue antimicrobial therapy at this point in time. MTDD
[2017-12-26] MEDS: Ketorolac Tromethamine 30 MG/ML VIAL IVP SCH ×3 (00:28→12:23)
[2017-12-26] MEDS: Saccharomyces boulardii 250 MG CAP PO SCH (10:11)
[2017-12-26] MEDS: Calcium Carbonate + Vit D 1 TAB PO SCH (10:12)
[2017-12-26] MEDS: Multivitamin W/ Minerals 1 TAB PO SCH (10:12)
[2017-12-26] MEDS: Ascorbic Acid 500 mg Chewable Tablet PO SCH (10:13)
[2017-12-26] MEDS: Famotidine 20 MG TAB PO SCH (10:13)
[2017-12-26] MEDS: predniSONE 20 MG TAB PO SCH (10:13)
[2017-12-26] MEDS: Folic Acid 1 MG TAB PO SCH (10:14)
[2017-12-26] MEDS: Senokot 8.6 MG TAB PO SCH (10:15)
[2017-12-26] MEDS: guaiFENesin ER 600 MG TAB PO SCH (10:15)
[2017-12-26 18:31] VITALS: BP 126/72; TEMP 98.1
--- NOTE | 2017-12-26 19:45 | PRG ---
DATE OF SERVICE: 12/26/2017 Mr. Sky Patrick did well. He says he is getting closer to being back to his baseline. On room air, he is fluctuating between 92% to 97% sitting up in a chair. He has been afebrile. He had a temperature up to 104 at presentation and his last fever on the was 102.1. All temperatures have been less than 99 since yesterday afternoon. He is off the antimicrobial therapy. No remarkable exam findings. He was seen in consultation by Dr. Hinds yesterday. I reviewed his CAT scan. There has been a dramatic improvement in his malignant process on the right. He is enrolled in an experimental protocol in [place] and has visits to [facility] on Tuesday, missed his last Tuesday treatment. Given his significant clinical improvement, I doubt he has an immunocompromised host type infection. He desperately wants to go home, and given how active he is and how much he has been through so far, I think it is reasonable to send him home and follow him closely as an outpatient. His antimicrobial therapy has been discontinued. He has been weaned off his steroids, which were used to treat his colitis. There is no CBC today. Blood cultures on the were negative. His respiratory virus panel was negative. C. diff workup was negative. Streptococcal antigen was negative. Urine culture was negative. Flu screen was negative. He is a very functional and very reliable patient. I think it is reasonable to follow him as an outpatient. I do not see any indication to keep him in the hospital other than to take his temperature at this point. THERESA
--- NOTE | 2017-12-27 10:51 | DIS ---
DISCHARGE DIAGNOSES: 1. Non-metastatic small cell lung cancer. 2. Febrile illness of unclear etiology, afebrile x24 hours. BRIEF SUMMARY OF HOSPITAL COURSE: This is a 67-year-old male with a known history of metastatic small cell lung cancer. He was initially presented with a chief complaint of high fever, specifically 105 degrees by digital forehead thermometer. The patient was admitted and placed on empiric antibiotics. Infectious Disease consulted for further evaluation of his febrile illness. At the time of discharge, the entirety of his serologies had not returned, but the patient felt very strongly about going to [facility] as he missed his last treatment timeframe and he wished to see his oncologist in [place]. He is pending further follow up for testing including a cosyntropin stimulation test, TSH, and opportunistic pathogens. The differential is even broader including colitis secondary to immune activation or recrudescence of symptoms status post tapering off of prednisone. The remainder of the patient's chronic medical issues had remained stable. CONSULTATIONS: 1. [employer]. 2. Infectious Diseases. MEDICATION RECONCILIATION: Please see the EMR for full details. THE PATIENT CONDITION AT THE TIME OF DISCHARGE: The patient has been afebrile for 24 hours. He is tolerating a baseline diet and is otherwise hemodynamically stable and able to complete ADLs. DISCHARGE INSTRUCTIONS: Include follow up with his outpatient PCP, local oncologist, [facility], and Infectious Diseases. The patient is able to complete teach back and appears to be reliable in terms of followup and so he is being discharged with close outpatient follow up. Thank you for asking me to care for the patient. Greater than 30 minutes spent coordinating discharge for the patient. Questions or concerns, contact [facility]. THERESA
[2017-12-28 14:29] LABS: CMV DNA-PCR Test Negative (Negative)
--- NOTE | 2018-01-04 09:58 | PQF ---
HILARYJOSE CARLOS GINA GONZALES JR [id number] CLINICAL DOCUMENTATION CLARIFICATION FORM: POST DISCHARGE Addendum to original discharge summary date: ____ Late entry note date: __ HILARYJOSE CARLOS Theodore HULL [id number] OSCAR MOSCOSO DO PLEASE DOCUMENT YOUR RESPONSE BELOW PLEASE FAX RESPONSE BACK TO [phone] YOUR INPUT IS NEEDED TO CORRECTLY CODE A DIAGNOSIS FOR YOUR PATIENT. DATE: 01/04/2018 ATTN: DR. BAIRD Please exercise your independent, professional judgment in responding to the clarification form. Clinical indicators are provided on the bottom of this form for your review Please check appropriate box(s) to clarify if the following diagnosis has been ruled in our ruled out: SEPSIS (CDI/Coding list diagnosis here) [ x ] Ruled in diagnosis [ ] Continue to treat [ ] Resolved [ ] Ruled out diagnosis [ ] Cannot rule out diagnosis [ ] Other diagnosis [ ] Unable to determine In addition, please specify: Present on Admission (POA): [ x] Yes [ ] No [ ] Unable to determine For continuity of documentation, please document condition throughout progress notes and discharge summary. Thank You. CLINICAL INDICATORS - SIGNS / SYMPTOMS / LABS: ER: T: 100.6 & 102.7 W/IN 24 HRS OF ADMIT NH: 110-117, RR: 22-28, BANDS 28% O2 SATURATION 89% ON ROOM AIR H&P: FEVER 2/3 PN: SEPSIS FEVER WITHOUT FOCALIZING SYMPTOMS /4 PN: FEBRILE ILLNESS, ? ATYPICAL INFECTION 2/2 PULM CONSULT: SEPSIS, WBC 3.6, BAND COUNT 28% ON TOP OF 57% NEUTROPHILS RISK FACTORS: PNEUMONIA ACUTE HYPOXIC RESPIRATORY FAILURE HYPONATREMIA LUNG CARCINOMA TREATMENTS: IV ANTIBIOTIC (This form is maintained as a part of the permanent medical record) 2014 [employer], [employer]. All Rights Reserved Ines Gallego, [place], AIR INTELLIGENCE SPECIALIST-H [email or web address] [phone] MTDD
== END 2017-12-26 18:32 | disposition home or self-care (01) | DRG 871 ==
LOC: SCSER 07:58 → 2NO 10:01
PROVIDERS: ADMIT Family Medicine; ATTEND Family Medicine
DX: A41.9 Sepsis, unspecified organism (principal); J18.9 Pneumonia, unspecified organism; J96.01 Acute respiratory failure with hypoxia; C79.51 Secondary malignant neoplasm of bone; I48.91 Unspecified atrial fibrillation; E87.1 Hypo-osmolality and hyponatremia; D64.81 Anemia due to antineoplastic chemotherapy; C34.11 Malignant neoplasm of upper lobe, right bronchus or lung; I10 Essential (primary) hypertension; T45.1X5A Adverse effect of antineoplastic and immunosuppressive drugs, initial encounter
CPT/HCPCS: 36415; 71045; 71275; 74177; 80053; 80074; 80400; 81003; 81015; 82533; 82553; 82805; 83605; 83630; 83690; 83880; 84443; 84484; 85007; 85025; 85027; 85060; 86480; 87040; 87045; 87046; 87086; 87207; 87324; 87385; 87389; 87449; 87497; 87633; 87804; 87899; 90471; 90682; 93005; 93306; 94640; 94760; 96361; 96365; A4216; G0008; J0692; J0834; J1450; J1885; J1940; J1956; J3370; J7506; J7620; Q2036

== ENCOUNTER 2017-12-28 11:35 | Inpatient (IN) | payer MEDICARE, BC ==
[2017-12-28 12:38] LABS: #Eosinphils 0.1 thou/uL (0.0-0.7); #Lymphocytes 0.6 thou/uL (1.20-3.40); #Monocytes 0.9 thou/uL (0.11-0.59); #Neutrophils 6.7 thou/uL (1.40-6.50); %Basophils 0.4 % (0.0-1.0); %Eosinophils 1.5 % (0.0-10.0); %Monocytes 10.8 % (0.0-10.0); %Neutrophils 80.4 % (42.0-75.0); Hemoglobin 9.9 g/dL (14.0-18.0); Mean Corpuscular HGB CONC 33.7 g/dL (32.0-36.0); Mean Corpuscular Hemoglobin 33.2 pg (27.0-31.0); Mean Corpuscular Volume 98.4 fl (80.0-94.0); Platelet Count 489 thou/uL (130-400); RBC Distribution Width 13.3 % (11.5-14.5); Red Blood Cell (RBC) Count 2.97 mill/uL (4.70-6.10); White Blood Cell (WBC) Count 8.3 thou/uL (4.8-10.8)
[2017-12-28 13:02] LABS: ALT (SGPT) 17 U/L (8-55); AST (SGOT) 23 U/L (5-34); Albumin 3.2 g/dL (3.4-4.8); Alkaline Phosphatase 91 U/L (40-150); Anion Gap 13 mmol/L (10-20); BUN (Urea Nitrogen) 16 mg/dL (8.4-25.7); Bilirubin, Total 0.3 mg/dL (0.2-1.2); Calc. Creatinine Clearance 0 mL/min (70-130); Calcium 9.1 mg/dL (7.8-10.44); Carbon Dioxide 26 mmol/L (23-31); Chloride 98 mmol/L (98-107); Estimated GFR-MDRD 51; Globulin 2.8 g/dL (2.4-3.5); Glucose 140 mg/dL (80-115); Potassium 3.8 mmol/L (3.5-5.1); Sodium 133 mmol/L (136-145)
--- NOTE | 2017-12-28 13:07 | CON ---
DATE OF CONSULTATION: 12/28/2017 HISTORY OF PRESENT ILLNESS: The patient is a 67-year-old male who was in his normal state of health until a few days prior to this when he developed diarrhea. The patient was recently hospit alized for fever of unknown origin and was treated with antibiotics and this is actually when the rosie rrhea recurred. He was initially seen by me in 10/2017 for diarrhea. He has been on Keytruda for rosaline ng cancer and this has been associated with colitis. He underwent stool testing back in October [facility] showed elevated fecal lactoferrin. C. difficile was negative at that time and stool culture was n egative. The patient subsequently underwent a colonoscopy on 10/31/2017 which showed diffuse colitis without ileitis. Biopsies were performed and showed unremarkable small bowel and active colitis in both right and left colon biopsies. This was felt to be secondary to Keytruda. He has subsequently followed up in October and was doing better. He was given budesonide and has subsequently tapered o ff that and has not had any for several months. He also was treated with Lomotil and Imodium. He prado s not received a dose of Keytruda in several months. He denies any abdominal pain. He denies any na usea, vomiting. His main complaint is shortness of breath. PAST MEDICAL HISTORY: Shows the stage IV non-small cell lung cancer, colitis secondary to Keytruda, hypertension, prostate cancer, status post radiation therapy. PAST SURGICAL HISTORY: C-spine spine fusion, L-spine fusion and rotator cuff repair. MEDICATIONS: From his discharge packet include multivitamin 1 p.o. daily, Calcium and vitamin D 1 p. o. daily, clonazepam 1-2 p.o. b.i.d. p.r.n., metoprolol 12.5 mg p.o. b.i.d. ALLERGIES: No known medical allergies. SOCIAL HISTORY: Former smoker, does not drink alcohol. FAMILY HISTORY: Negative. REVIEW OF SYSTEMS: CONSTITUTIONAL: No fever or chills, no weight loss. EYES: No blurred vision, double vision. ENT: No sore throat or earaches. CARDIOVASCULAR: No chest pain or palpitation. PULMONARY: Positive for shortness of breath. Positive for dyspnea on exertion. GASTROINTESTINAL: See above. : No hematuria or dysuria. MUSCULOSKELETAL: No joint pain or muscle weakness. SKIN: No rashes. NEUROLOGIC: No numbness or seizure activity. LABORATORY DATA: Shows a white blood cell count of 4.2, hemoglobin 10, hematocrit 30. He has 31% ne utrophils. Chemistries; significant for sodium of 133, creatinine 1.37. Total protein 31. Urinalys is is negative. Serology is negative for hepatitis A, B, and C serology, HIV is negative. Previous abdominal pelvic CT from 12/25/2017 showed some right hemidiaphragm elevation and some pleur al and parenchymal opacity changes in the right base. Only changes worrisome for possibility of meta stasis. Stool for C. difficile was negative. Stool lactoferrin was elevated, Campylobacter was nega tive. Shigella was negative. ASSESSMENT: 1. Recurrent diarrhea - this most likely is antibiotic associated diarrhea versus Clostridium diffic ile. Most likely would be Keytruda related colitis. 2. Stage IV lung cancer. 3. Shortness of breath. RECOMMENDATIONS: 1. Repeat stool studies. 2. May need a flex sig if unable to fully diagnose this and it persists.
--- NOTE | 2017-12-28 13:28 | CON ---
DATE OF CONSULTATION: 12/28/2017 REASON FOR CONSULTATION: Hypoxemia. HISTORY OF PRESENT ILLNESS: A 67-year-old whom I had seen recently just a few days ago when he was admitted with a history of non-small cell lung cancer since 03/2016, treated with usual chemo regimen and then switched to Pemetrexed , subsequently developed collapse of right upper lobe and was treated for atelectasis with the usual management with improvement and then he [facility] and last treatment in September developed colitis with all the other etiologies ruled out, felt to be secondary to the PD-1 checkpoint inhibitor. The patient was treated with corticosteroids with improvement and was admitted to the hospital after taper the steroids with fever. We felt that this was likely due to the immune activation syndrome. Chest CT done on 12/22/2017 showed a decrease in right upper lobe mass size with improved aeration right upper lobe bronchus, occlusion right upper lobe pulmonary artery anterior and apical segments without any other segmental pulmonary arterial filling defect. The patient had multiple pathologic rib fractures. The patient was discharged and then was noticed to have quite significant hypoxemia with O2 sats in the home setting at 78 reportedly in a room air setting. The patient was seen by Dr. Covarrubias and was admitted. He at rest feels okay, but he becomes quite dyspneic on mild effort. No headaches, no visual symptoms, sore throat, odynophagia, dysphagia, no back pain, no chest pain, no abdominal pain, still with loose stools that are sometimes explosive. No genitourinary symptoms. No joint symptoms. Moves all extremities equally. His cognitive function appears to be intact. PAST MEDICAL HISTORY: Stage IV non-small cell lung cancer on PD-1 checkpoint inhibitor until September with response and colitis associated with immune activation syndrome with fever, which seemed to have resolved. PAST SURGICAL HISTORY: Spinal fusion, lumbar spine fusion and rotator cuff repair. MEDICATIONS: DuoNeb, aspirin, Klonopin, Lovenox, Pepcid, Imodium, methylprednisolone 20 mg q.6h., metoprolol. ALLERGIES: None. FAMILY HISTORY: Diabetes and cardiomyopathy. SOCIAL HISTORY: Former smoker, quit more than 30 years ago. PHYSICAL EXAMINATION: VITAL SIGNS: Temperature 98.7, pulse 88, respiratory rate 22 at rest. SKIN: Peripheral IV access. No areas of skin breakdown noted. No Salmon catheter. HEENT: Ocular movements are conjugate. Oral cavity moist, numerous teeth in place with some decay. NECK: Supple. No jugular venous distention. LUNGS: With bilateral inspiratory crackles, more intense at the bases. No wheezing. HEART: S1, S2, regular rate. ABDOMEN: Soft, not distended. EXTREMITIES: He has 2-3+ edema in lower extremities, symmetric. Pulses are 1+ in dorsalis pedis. Moves all extremities equally. NEUROLOGIC: Cognitive function appears to be intact. LABORATORY AND X-RAY FINDINGS: WBC count 8.3, hemoglobin 9.9, platelets 489 with 80% neutrophils. Sodium 133, creatinine 1.37 from a few days ago and a chest x-ray, unchanged chest with increased confluence of right lower lobe airspace opacity with small effusion and increased interstitial markings, left lung. ASSESSMENT: 1. Stage IV lung cancer. 2. PD-1 checkpoint inhibitor treatment ending in September. 3. Immune activation syndrome. 4. Colitis secondary to immune activation syndrome with improvement after corticosteroids. 5. Hypoxemia with inspiratory crackles and some interstitial findings on x-ray. 6. Possible volume overload. DISCUSSION: Differential diagnosis includes volume overload versus an opportunistic infection versus Keytruda side effect or immune activation. Pt also had a segment of a pulmonary artery R side which was obstructed but it appeared to be from the mass rather than embolism, this might have to be revisited depending on clinical course. We will check BNP and check a number of opportunistic pathogen assays.Corticosteroids have been added. MTDD
[2017-12-28 14:26] VITALS: BMI 28.5
[2017-12-28 17:21] LABS: Bilirubin Negative (Negative); Blood, Urine Negative (Negative); Clarity CLEAR (Clear); Glucose, Urine (Dipstick) Negative (Negative); Leukocyte Negative (Negative); Nitrite Negative (Negative); Protein, Urine (Dipstick) Negative (Neg-Trace); Specific Gravity, Urine 1.013 (1.002-1.036); Urobilinogen 0.2 mg/dL (0.2-1.0)
--- NOTE | 2017-12-28 19:43 | CON ---
DATE OF CONSULTATION: 12/28/2017 REASON FOR CONSULTATION: Lung cancer. HISTORY OF PRESENT ILLNESS: Mr. Patrick is a pleasant 67-year-old male who was diagnosed with stage IV poorly-differentiated adenocarcinoma of the lung in 2015. He underwent chemotherapy with CarboTaxol. He had progression and had treatment with Alimta data. In early 2016, he had disease progression, he then went to [facility] and was placed on a clinical trial consisting of stereotactic radiosurgery and immunotherapy with Keytruda. He received 12 of 16 doses in early October. He developed immune mediated colitis and was on immunosuppression with prednisone. His colitis did improve. His last dose of steroids was approximately 2 weeks ago and shortly after stopping, he developed a fever and then was admitted to this facility for pneumonia with hypoxemia. He was treated with antibiotics. Unfortunately, his diarrhea resumed. It was felt it was likely due to antibiotics. He was discharged approximately 2 days ago. He followed up with Dr. Covarrubias this morning in the clinic, was noted to be hypoxic with a room air sat of 75%. He then was readmitted to this hospital. His chest x-ray this morning showed increased interstitial markings, it again showed the right upper lobe mass. He denied any fever. No shortness of breath at rest. No evidence of pneumonia. Dr. Hinds was consulted and is working the patient up for possible opportunistic infection. The patient also has bilateral lower extremity edema. His BNP was mildly elevated at 500. Dr. Rocha has seen the patient for recurrent diarrhea. The patient has been restarted on IV steroids and is resting comfortably at bedside. PAST MEDICAL HISTORY: 1. Stage IV adenocarcinoma of the lung. 2. Hypertension. 3. Prostate cancer. 4. 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 PAST SURGICAL HISTORY: 1. C-spine fusion. 2. L-spine fusion. 3. Rotator cuff repair. ALLERGIES: No known drug allergies. HOME MEDICATIONS: 1. Vitamin D daily. 2. Clonazepam 0.5 mg p.r.n. 3. Toprol-XL 12.5 mg b.i.d. FAMILY HISTORY: There is no family history of malignancy. SOCIAL HISTORY: , lives with his spouse. He is a former smoker. No alcohol, tobacco or illicit drug use. REVIEW OF SYSTEMS: Twelve-point review of systems is negative except where noted in HPI. PHYSICAL EXAMINATION: VITAL SIGNS: Temperature is 98.1, pulse is 92, respiratory rate 16, BP is 115/ 71, he is 93% on 3 liter. GENERAL: This is a well-developed, well-nourished male in no acute distress. HEENT: Normocephalic, atraumatic. Pupils are equal and reactive to light. NECK: Supple. CARDIOVASCULAR: Regular rate and rhythm. LUNGS: He has rales throughout. ABDOMEN: Soft, nontender, bowel sounds are positive. EXTREMITIES: He has 1+ pitting edema in his bilateral lower extremities. SKIN: There is no rash. HEMATOLOGICAL: There is no petechia or purpura. NEUROLOGIC: Nonfocal. PSYCHIATRIC: The patient is alert and oriented and appropriate. PERTINENT LABORATORY AND X-RAYS: Current WBCs are 8.3, hemoglobin 9.9, hematocrit 29.3, platelet count 489,000. He has got 80% neutrophils, 7% lymphocytes. Sodium is 133, potassium 3.8, chloride 98, CO2 is 26, BUN 16, creatinine 1.38, calcium is 9.1, bilirubin is 0.3, AST is 23, ALT 17, alkaline phosphatase is 91. BNP is 580.4. Serum total protein is 6, albumin 3.4, globulin 2.8. Cortisol is 15.7. Radiology per HPI. IMPRESSION: 1. Stage IV adenocarcinoma on clinical trial with immunotherapy and sterotactic radiosurgery last dose in 09/2017. 2. Recent immune mediated colitis. 3. Hypoxemia, likely secondary to immune mediated pneumonitis. 4. Bilateral lower extremity. DISCUSSION: Case has been discussed between Dr. Covarrubias, Dr. Jacobs and myself. He has not had a dose of Keytruda since September. It is unusual to get immune mediated pneumonitis this far from his last dose. However, he did have a protracted immune mediated colitis with recent completion of steroids. His chest imaging shows no evidence of infection. The patient has been placed on back on steroids. He is on O2 opportunistic infections are being ruled out by Dr. Hinds. His diarrhea hopefully will improve over the next few days. Plan is to treat him with a course of steroids over the next few weeks and he will follow up with [facility] as scheduled. Thank you for the consult. THERESA
[2017-12-28] MEDS: Enoxaparin Sodium 40 MG/0.4 ML SYRINGE SC SCH (20:34)
[2017-12-28] MEDS: clonazePAM 0.5 MG TAB PO SCH (20:35)
[2017-12-28] MEDS: Famotidine 20 MG TAB PO SCH (20:35)
--- NOTE | 2017-12-28 23:34 | HP ---
HISTORY OF PRESENT ILLNESS: Mr. Patrick is a very pleasant 67-year-old male. He has nonsmall cell lung cancer. Currently being treated in a protocol at [facility] with Keytruda. He recently was diagnosed with Keytruda induced colitis. He was treated with prednisone and had improved symptoms. He is tapered off his prednisone. He was recently in the hospital with temperature of 104. He did not tell anyone that he was having recurrence of his diarrhea. He wanted to go home two days ago and actually was on the edge of saying he was going to refuse to stay any further unless we had something to do for him that would require an intravenous medication. We agreed to let him go home. His called me last night stating that he was "swelling." She wanted me to call in the prescription for Lasix. I declined after talking to him. He denied having any distress other than shortness of breath walking up stairs. I asked him to come and see me today in the office. He actually looked well, but had a saturation between 70 to 75 on room air, which is a dramatic change, and he issubsequently being admitted for further care. PAST MEDICAL HISTORY: Remarkable for prostate cancer that has been radiated in the past, C-spine surgery, lumbar spine surgery, and rotator cuff repair. MEDICATIONS: Prior to admission, he was mainly on Klonopin at bedtime and metoprolol 12.5 mg twice a day, multiple [id number] vitamins. ALLERGIES: No drug allergies. FAMILY HISTORY: He has very supportive . Negative for lung disease at an early age. SOCIAL HISTORY: He is retired. He is an avid golfer and has remained extremely active. He is a nonsmoker, nondrinker. Dyspnea on exertion going up stairs is new for him. Several weeks back, he was walking several miles without difficulty. He had fever with his last admission to 104, but has had no fever since he got home. His says his highest temperature was 100.1. REVIEW OF SYSTEMS: A 12-point review of systems is otherwise negative. PHYSICAL EXAMINATION: GENERAL: In the office, he is in no distress at rest. VITAL SIGNS: His blood pressure is 120/70, pulse 80, respiratory rate is 18, oximetry as mentioned has been 70-75 on room air, it is now 93 on 3 liter cannula. NECK: Unremarkable. LUNGS: Remarkable for crackles more to his left than his right base. HEART: Regular rhythm. ABDOMEN: Soft. EXTREMITIES: Without asymmetry. LABORATORY DATA: White count 8.3, hemoglobin 9.9, platelets 489. Sodium 133, potassium 3.8, chloride 98, bicarbonate 26, BUN 16, creatinine 1.38. Urinalysis shows no proteinuria. CT angiogram was done last admission showing dramatic improvement in the size of his tumor in his right upper lobe; no evidence of thromboembolic disease. I have reviewed the CT again, today's chest radiograph looks similar to his admission film may be slightly improved. IMPRESSION: 1. ? recurrent colitis. 2. Pneumonitis, associated with Keytruda leading to hypoxemia. He has nothing to suggest an alveolar filling problem such as pneumonia. He has recently had thromboembolic disease ruled out. 3. Respiratory Failure His tumor is not progressing and was actually smaller than it has been in quite some time. I have recommended steroids. I do not find any evidence of volume overload. I will repeat an echocardiogram since the echo done last admission was technically very poor. A visualization of his aortic valve was not adequate. Opportunistic infections are very rare with Keytruda. If he was an HIV patient , I would obviously be concerned about pneumocystis with an unimpressive chest x -ray and severe hypoxemia, but I do not feel bronchoscopy or lavage is indicated at this point. Steroids are reasonable, Infectious Disease, Gastroenterology and his Oncology has been consulted. I met with his and answered all of her questions. This is a 50 min consult, greater than 50% of the time [employer] on the unit coordinating care. THERESA
--- NOTE | 2017-12-29 13:45 | PRG ---
DATE OF SERVICE: 12/29/2017 SUBJECTIVE: The patient is doing better. He is having less frequent bowel movements. The bowel mov ements are somewhat formed today. His shortness of breath seems to be vastly improved. OBJECTIVE: VITAL SIGNS: Temperature 97.6, pulse 95, respiratory rate 16, blood pressure 118/69. CHEST: Clear. CARDIOVASCULAR: Regular rate and rhythm. ABDOMEN: Benign. LABORATORY DATA: Shows BNP of 580. Stool for C. difficile was negative. Stool for lactoferrin was negative. ASSESSMENT: 1. Antibiotic associated diarrhea. 2. Lung cancer. RECOMMENDATIONS: 1. Continue p.r.n. Imodium or Lomotil (the patient has). 2. . Case covering, call if needed.
--- NOTE | 2017-12-29 13:50 | PRG ---
DATE OF SERVICE: 12/29/2017 He is feeling better, less dyspnea, very little cough. No sputum production. No back pain, no chest pain, no abdominal pain or diarrhea. Actually the diarrhea has improved with soft stool. PHYSICAL EXAMINATION: VITAL SIGNS: T-max 98.4. Other vital signs are remarkable, O2 sat 93%. GENERAL: Awake, alert, oriented, sitting by the bedside. No distress. HEENT: Ocular movements are conjugate. Oral cavity moist. No lesions. LUNGS: Left lung with inspiratory crackles at the base, right lung with question of a friction rub. HEART: S1, S2, regular rate. ABDOMEN: Soft, not distended or tender. EXTREMITIES: 1+ edema in lower extremities. LABORATORY: BNP was 580, albumin 3.2. ASSESSMENT AND DISCUSSION: The patient has been seen by Gastroenterology, Dr. Rocha, and felt to be s econdary to the previously discussed possibilities. The possibility of immune mediated pneumonitis h as been discussed. May have an element of volume overload as well from the recent admission when he was given a lot of fluids intravenously for the first 2 days. We will wait on the final results of the opportunistic pathogen workup, but I do not believe that tho se will nocturnist anything hopefully.
[2017-12-29] MEDS: clonazePAM 0.5 MG TAB PO SCH (20:33)
[2017-12-29] MEDS: Famotidine 20 MG TAB PO SCH (20:33)
[2017-12-29] MEDS: Enoxaparin Sodium 40 MG/0.4 ML SYRINGE SC SCH (20:33)
[2017-12-29] MEDS: Loperamide HCl 2 MG CAP PO PRN (20:41)
--- NOTE | 2017-12-30 02:33 | PRG ---
DATE OF SERVICE: 12/29/2017 Mr. Patrick is afebrile. His heart rate is 99, respiratory rate is 18, oximetry is 95. On room air, h is sats were in the high 80s to low 90s today at rest, but he walked to the bathroom and back without oxygen, his sats dropped into the 70s, blood pressure 120/68. He says he feels much better than he felt yesterday, although he really would not complaining much yesterday. He has crackles at his lung bases, sound improved, but I am really not sure what to do with this because I doubt any type of inf lammatory changes in his lung bases would improve quickly with 24 hours of steroids. We will continue with current care and working diagnosis that he has a pneumonitis associated with hi s immune system activation with his Keytruda. Dr. Rocha evaluated him again today and felt that he might have more antibiotic associated diarrhea. He is currently not on any antibiotics. We will continue with current care.
[2017-12-30] MEDS: Loperamide HCl 2 MG CAP PO PRN (08:01)
[2017-12-30] MEDS ORDERED: Furosemide 40 MG/4 ML VIAL IVP ONE (08:56)
[2017-12-30] MEDS ORDERED: Potassium Chloride 20 MEQ TAB PO SCH (09:00)
[2017-12-30] MEDS ORDERED: Furosemide 100 MG/10 ML VIAL SLOW IVP SCH (09:15)
--- NOTE | 2017-12-30 11:42 | PQF ---
CLINICAL DOCUMENTATION IMPROVEMENT CLARIFICATION FORM: ICD-10 Updated PLEASE DO AN ADDENDUM TO THE PROGRESS NOTE WITH ANY DOCUMENTATION UPDATES OR ADDITIONS AND CARRY THROUGH TO DC SUMMARY. THANK YOU. DATE: 12/30/17 ATTN: Dr. Covarrubias Please exercise your independent, professional judgment in responding to the clarification form. Clinical indicators are provided on the bottom of this form for your review Please check appropriate box(s): [x ] Acute Respiratory Failure: [ x ] with Hypoxia [ ] with Hypercapnia [ ] Acute On Chronic Respiratory Failure: [ ] with Hypoxia [ ] with Hypercapnia [ ] Acute Respiratory Failure due to: (etiology) [ ] Chronic Respiratory Failure only [ ] with Hypoxia [ ] with Hypercapnia [ ] Other diagnosis [ ] Unable to determine In addition, please specify: Present on Admission (POA): [ x ] Yes [ ] No [ ] Unable to determine For continuity of documentation, please document condition throughout progress notes and discharge summary. Thank You. CLINICAL INDICATORS - SIGNS / SYMPTOMS / LABS H&P: RESPIRATORY RATE IS 18, OXIMETRY HAS BEEN 70-75 ON ROOM AIR IT IS NOW 93 ON 3 LITER CANNULA PN 12/29/17: ON RA, HIS SATS WERE IN THE HIGH 80s TO LOW 90s TODAY AT REST HE WALKED TO THE BATHROOM & BACK WITHOUT OXYGEN, HIS SATS DROPPED INTO THE 70s RISKS: H&P: HE HAS NONSMALL CELL LUNG CANCER. RECENTLY DIAGNOSED W/ KETRUDA INDUCED COLITIS. RECENTLY IN HOSPTIAL W/ TEMP OF 104. PN 12/29: WORKING DX THAT HE HAS A PNEUMONITIS ASSOCIATED WITH HIS IMMUNE SYSTEM ACTIVATION W/ HIS KEYTRUDA TREATMENT: ORDER 12/28: RESP: O2 TO KEEP SATS 92% ORDER 12/28: DUONEB TID - RT Thank you, Naty (This form is maintained as a part of the permanent medical record) 2015 [employer]. All Rights Reserved Naty Watson RN, BSN [email or web address] Office: [phone] [facility]
--- NOTE | 2017-12-30 13:01 | PRG ---
DATE OF SERVICE: 12/30/2017 He says he feels better. He is not desaturating as much as he did on presentation. PHYSICAL EXAMINATION: LUNGS: His lungs still have crackles at his bases. He has 1+ pedal edema, but no pretibial edema. His repeat echocardiogram does not show aortic outflow obstruction or significant mitral regurgitatio n. A working diagnosis has been that this is an immune activation pneumonitis, but he has dramatically i mproved just with admission to the hospital on IV steroids. All of this is a little unusual. There is no evidence of diastolic dysfunction on his echocardiogram, but I suppose there could be a compone nt of this. He has not had his immunotherapy in a while, but also recently just tapered off steroids which would lead me to believe that maybe this was an inflammatory pneumonitis associated with his i mmunotherapy that was on mask with tapering off of his steroids. Gastroenterology does not feel like his inflammatory colitis has recurred. Will probably try to taper him off steroids relatively quickly. I will give him 1 dose of IV Lasix today. Hopefully he can be discharged home without oxygen tomorro w on prednisone. I discussed the above with his local oncologist as well. He is agreeable to this p gee.
[2017-12-30 14:28] LABS: CMV DNA-PCR Test Negative (Negative)
[2017-12-30] MEDS: Famotidine 20 MG TAB PO SCH (20:05)
[2017-12-30] MEDS: clonazePAM 0.5 MG TAB PO SCH (20:06)
[2017-12-30] MEDS: Enoxaparin Sodium 40 MG/0.4 ML SYRINGE SC SCH (20:07)
--- NOTE | 2017-12-31 13:22 | PRG ---
DATE OF SERVICE: 12/31/2017 SUBJECTIVE: Mr. Patrick is better this morning. Awake, alert, responsive. OBJECTIVE: VITAL SIGNS: Sats are 94% on 2 liters, respirations 16, temperature 98, blood pressure 157/81. CHEST: Chest reveals decreased breath sounds, no wheezing. CARDIAC: Normal S1, S2. No gallops. ABDOMEN: Soft. No masses. IMPRESSION: Chronic obstructive pulmonary disease, respiratory failure, colitis, diastolic dysfuncti on. PLAN: He will be discharged home to follow up with Dr. Covarrubias. He has a list of all his medication from home, which he is going to continue including his inhalers, tapering dose of prednisone.
[2017-12-31 13:28] VITALS: BP 160/82; TEMP 97.3
--- NOTE | 2018-01-02 10:07 | DIS ---
DISCHARGE DIAGNOSES: 1. Pneumonitis, most likely secondary to immune activation with Keytruda. 2. Pay-diuqk-dheb lung cancer in his right upper lung field laterally involving his chest wall and i nvading his chest wall. He has had an amazing response to Keytruda. 3. History of radiated prostate cancer in the past. 4. History of cervical spine surgery. 5. History of lumbar spine surgery. 6. History of rotator cuff repair. 7. History of hypertension, on metoprolol. Please see history and physical for details. Briefly, Mr. Patrick presented to the office with severe hypoxemia. His called me the night befor e asking me to call in a prescription for diuretic. I declined and asked him to come to the office i n the morning. His sats were in the 70s in the office. He has no heart history and there was no juana son to believe that he had decompensated heart failure. Chest radiograph was suggestive of an increased interstitial markings. He was admitted and started o n steroids and with the steroids, he had daily improvement in his sense of well-being as well as his gas exchange. It must be noted that he has had immune system mediated colitis, recently diagnosed. He has just tap ered off his steroids for that. He has been deemed stable to go home on a steroid taper and follow up with his physicians at [facility]. He will see me in a few weeks.
== END 2017-12-31 12:44 | disposition home or self-care (01) | DRG 205 ==
LOC: T4-A 11:35
PROVIDERS: ADMIT Internal Medicine Critical Care Medicine; ATTEND Internal Medicine Critical Care Medicine
DX: J70.4 Drug-induced interstitial lung disorders, unspecified (principal); J96.01 Acute respiratory failure with hypoxia; C34.11 Malignant neoplasm of upper lobe, right bronchus or lung; J44.9 Chronic obstructive pulmonary disease, unspecified; C79.89 Secondary malignant neoplasm of other specified sites; I10 Essential (primary) hypertension; T45.1X5A Adverse effect of antineoplastic and immunosuppressive drugs, initial encounter; Z92.3 Personal history of irradiation; Z85.46 Personal history of malignant neoplasm of prostate; K52.9 Noninfective gastroenteritis and colitis, unspecified
CPT/HCPCS: 36415; 71046; 80053; 81003; 82533; 83630; 83880; 85025; 87324; 87449; 87497; 87899; 93306; 94640; 94760; A4216; G8978-GP-CH; G8979-GP-CH; G8980-GP-CH; J1650; J1940; J2920; J7620

== ENCOUNTER 2018-01-16 11:38 | Outpatient (CLI) | payer MEDICARE, BC ==
--- NOTE | 2018-01-16 14:26 | RAD ---
CHEST 2 VIEWS: HISTORY: Dyspnea.. COMPARISON: Chest radiograph 12/28/17. FINDINGS: The right mid lung mass is similar. Pleural thickening/effusion is similar. Extensive pleural scarring. The left lung is relatively clear. IMPRESSION: 1. No significant change in radiographic appearance of the chest. A large right lung mass along wit h multiple areas of post-treatment changes of the right-sided ribs and right humeral head. 2. Extensive periosteal bone formation along the posterior right rib, likely post treatment mass-lik e in nature. 3. Clear left lung. POS: [facility]
== END 2018-01-16 11:39 | disposition home or self-care (01) ==
LOC: RAD 11:38
PROVIDERS: ATTEND Internal Medicine Critical Care Medicine
DX: R06.00 Dyspnea, unspecified (principal); R91.8 Other nonspecific abnormal finding of lung field
CPT/HCPCS: 71046

== ENCOUNTER 2018-03-22 13:31 | Outpatient (CLI) | payer MEDICARE, BC ==
--- NOTE | 2018-03-22 15:26 | RAD ---
PA AND LATERAL VIEWS CHEST: HISTORY: Dyspnea. FINDINGS: Comparison is made with the exam of 01/16/18. There is continued elevation of the right hemidiaphragm. The large right lung mass is unchanged. Th e heart size is normal. Aorta is tortuous. The left lung is unremarkable. Post treatment changes r ight sided ribs and right humeral head are again seen. IMPRESSION: Stable exam. No acute process. POS: [facility]
== END 2018-03-22 13:32 | disposition home or self-care (01) ==
LOC: RAD 13:31
PROVIDERS: ATTEND Internal Medicine Critical Care Medicine
DX: R06.00 Dyspnea, unspecified (principal)
CPT/HCPCS: 71046

== ENCOUNTER 2018-03-27 14:00 | Inpatient (IN) | payer MEDICARE, BC ==
[2018-03-27 14:30] VITALS: BMI 28.1
[2018-03-30] MEDS ORDERED: CEFAZOLIN/Water 2 GM/20 ML SYRINGE ONE (06:27)
[2018-03-30] MEDS ORDERED: Vancomycin HCl 1.5 GM in Sodium Chloride 0.9% 250 ML 300 ML IVPB SCH ×2 (06:30→18:00)
[2018-03-30] MEDS ORDERED: Lidocaine 1% (PF) 30 ML VIAL ONE (06:31)
[2018-03-30] MEDS ORDERED: Midazolam HCl 2 mg/2 ml Vial ONE (06:31)
[2018-03-30] MEDS ORDERED: Fentanyl 100 MCG/2 ML VIAL ONE ×2 (06:31→07:18)
[2018-03-30] MEDS ORDERED: Bupivacaine PF 0.5% 30 ML VIAL ONE (06:59)
[2018-03-30] MEDS ORDERED: Ropivacaine 0.2% HCl/PF (40 MG/20 ML VIAL) ONE (06:59)
[2018-03-30] MEDS ORDERED: HYDROcodone/Acetaminophen 7.5/325 mg Tablet PO PRN ×4 (07:03→07:50)
[2018-03-30] MEDS ORDERED: Acetaminophen 325 MG TAB PO PRN (07:03)
[2018-03-30] MEDS ORDERED: traMADol HCl 50 MG TAB PO PRN ×2 (07:03→07:48)
[2018-03-30] MEDS ORDERED: clonazePAM 0.5 MG TAB PO PRN (07:06)
[2018-03-30] MEDS ORDERED: Zolpidem Tartrate 5 MG TAB PO PRN (07:48)
[2018-03-30] MEDS ORDERED: Promethazine HCl 25 MG/ML VIAL IM PRN ×2 (07:48→08:32)
[2018-03-30] MEDS ORDERED: Ropivacaine 0.2% 550 ML 550 ML NERVE BLCK SCH (07:48)
[2018-03-30] MEDS ORDERED: Ondansetron HCl/PF 4 MG/2 ML Vial IVP PRN ×2 (07:48→08:32)
[2018-03-30] MEDS ORDERED: Fentanyl 100 MCG/2 ML VIAL IV PRN (07:49)
[2018-03-30] MEDS ORDERED: Promethazine HCl 25 MG/ML VIAL SLOW IVP PRN (08:32)
[2018-03-30] MEDS ORDERED: Bupivacaine/Epinephrine 0.25% 30 ML VIAL ONE (09:01)
--- NOTE | 2018-03-30 09:41 | OP ---
PREOPERATIVE DIAGNOSIS: Rotator cuff arthropathy, right shoulder. POSTOPERATIVE DIAGNOSIS: Rotator cuff arthropathy, right shoulder with chronic biceps tendon rupture . SURGEON: Wm Roy M.D. PURE PAK MACHINE OPERATOR: Umair Morris PA-C. BLOOD LOSS: 200 mL. SPECIMEN: None. DRAINS: None. COMPLICATIONS: None. IMPLANTS USED: A 28 x 4B Reliant stem with a 36 mm glenosphere, 29 mm baseplate tray, standard plus 0 poly 36 mm x 9 mm and four screws were used. NARRATIVE REPORT: After appropriate consent was obtained, the patient was placed in the beach chair position with a roll under the right shoulder. The right shoulder was prepped and draped in the usua l sterile fashion. I made a standard deltopectoral approach. Cephalic vein was taken medially and p reserved, branches were coagulated. The deltopectoral interval was opened. The biceps tendon was id entified. The tendon was frayed and in poor condition. I removed the biceps from the groove and tag ged it for later repair. It was eventually tagged to soft tissues using #5 Ethibond suture. The sub scapularis was taken down. Bone spurs were removed. Subscapularis was tacked for later repair. Usi ng the Tornier guide, a standard cut was performed. I then exposed the glenoid circumferentially. I drilled a central hole and reamed the glenoid. The glenoid baseplate was deployed without difficult y and screws were inserted in the usual technique. Glenosphere was docked without difficulty after i rrigation. Attention was turned to the humerus, which was opened with an acetabular and a shaft ream er to the appropriate size. Trial implant was placed and a trial reduction was performed. Trials we re removed and irrigation performed. I placed drill holes through the lesser tuberosity to repair th e subscapularis. Permanent implant was impacted into place. The shoulder was reduced and confirmed to have good stability throughout a range of motion. Subscapularis was tacked down with a cottony Da cron suture. Additional irrigation was performed. The deltopectoral interval was repaired with #2-0 Vicryl and subcutaneous tissue closed with 2-0 Vicryl. The skin was closed with bulmaro and a steri le dressing was applied. IMPLANTS USED: Tornier 12 mm stem with a 9 mm polyethylene bushing and a standard baseplate and 36 g lenosphere.
[2018-03-30] MEDS: Ketorolac Tromethamine 30 MG/ML VIAL IVP SCH ×3 (12:54→23:49)
[2018-03-30] MEDS ORDERED: ePHEDrine/0.9% NaCl/PF SYRINGE 50 mg/10 ml ONE ×2 (14:25)
[2018-03-30] MEDS ORDERED: PROPOFOL 200 MG/20 ML VIAL ONE (14:25)
[2018-03-30] MEDS ORDERED: Glycopyrrolate 0.2 MG/ML 5 ML SYRINGE ONE (14:25)
[2018-03-30] MEDS ORDERED: Hydrocortisone Sod Succ/PF 100 mg/2 ml Vial ONE (14:25)
[2018-03-30] MEDS ORDERED: Esmolol 100 MG/10 ML VIAL ONE (14:25)
[2018-03-30] MEDS: CEFAZOLIN/Water 2 GM/20 ML SYRINGE SLOW IVP SCH ×2 (16:02→23:50)
[2018-03-31] MEDS: Ketorolac Tromethamine 30 MG/ML VIAL IVP SCH (05:59)
[2018-03-31] MEDS ORDERED: Calcium Carbonate + Vit D 1 TAB PO SCH (09:00)
[2018-03-31] MEDS ORDERED: Enoxaparin Sodium 40 MG/0.4 ML SYRINGE SC SCH (09:00)
[2018-03-31 12:10] VITALS: BP 156/79; TEMP 97.8
== END 2018-03-31 11:45 | disposition home or self-care (01) | DRG 483 ==
LOC: SURG A 03-30 06:00 → SURG B 03-30 10:49 → EDSTATUS 03-30 14:00
PROVIDERS: ADMIT Orthopaedic Surgery; ATTEND Orthopaedic Surgery
PROC: 0RRJ00Z Replacement of Right Shoulder Joint with Reverse Ball and Socket Synthetic Substitute, Open Approach (ICD-10-PCS; principal; 2018-03-30)
PROC: 0LS30ZZ Reposition Right Upper Arm Tendon, Open Approach (ICD-10-PCS; 2018-03-30)
DX: M12.811 Other specific arthropathies, not elsewhere classified, right shoulder (principal); S46.811A Strain of other muscles, fascia and tendons at shoulder and upper arm level, right arm, initial encounter; X58.XXXA Exposure to other specified factors, initial encounter
CPT/HCPCS: 80048; 85025; 86850; 86900; 86901; 87081; 93005; 93010; A4306; G8978-GP-CK; G8979-GP-CI; G8987-GO-CJ; G8988-GO-CJ; G8989-GO-CJ; J1650; J1720; J1885; J2001; J2250; J2704; J2795; J3010; J3370; J7050; S0020

== ENCOUNTER 2018-03-27 14:14 | Outpatient (CLI) | payer MEDICARE, BC ==
[2018-03-27 15:12] LABS: #Eosinphils 0.1 thou/uL (0.0-0.7); #Lymphocytes 0.9 thou/uL (1.20-3.40); #Monocytes 0.7 thou/uL (0.11-0.59); #Neutrophils 4.8 thou/uL (1.40-6.50); %Basophils 0.1 % (0.0-1.0); %Eosinophils 1.1 % (0.0-10.0); %Lymphocytes 13.6 % (21.0-51.0); %Neutrophils 74.3 % (42.0-75.0); Hemoglobin 12.5 g/dL (14.0-18.0); Mean Corpuscular Hemoglobin 32.7 pg (27.0-31.0); Mean Corpuscular Volume 93.4 fl (80.0-94.0); Mean Platelet Volume 6.5 fL (7.4-10.4); Platelet Count 288 thou/uL (130-400); RBC Distribution Width 12.9 % (11.5-14.5); Red Blood Cell (RBC) Count 3.84 mill/uL (4.70-6.10); White Blood Cell (WBC) Count 6.4 thou/uL (4.8-10.8)
[2018-03-27 15:33] LABS: Anion Gap 11 mmol/L (10-20); BUN (Urea Nitrogen) 11 mg/dL (8.4-25.7); Calc. Creatinine Clearance 0 mL/min (70-130); Calcium 9.2 mg/dL (7.8-10.44); Carbon Dioxide 29 mmol/L (23-31); Chloride 101 mmol/L (98-107); Estimated GFR-MDRD 57; Glucose 97 mg/dL (80-115); Potassium 3.9 mmol/L (3.5-5.1); Sodium 137 mmol/L (136-145)
--- NOTE | 2018-03-28 14:32 | EKG ---
Test Reason : Blood Pressure : / mmHG Vent. Rate : 082 BPM Atrial Rate : 082 BPM P-R Int : 190 ms QRS Dur : 130 ms QT Int : 396 ms P-R-T Axes : 058 064 028 degrees QTc Int : 462 ms Sinus rhythm with Premature atrial complexes Right bundle branch block Abnormal ECG When compared with ECG of 22-DEC-2017 08:19, Premature atrial complexes are now Present Confirmed by DR. Bettie BUSTOS ([id number]) on 03/28/2018 2:32:01 PM Referred By: NICOLÁS Confirmed By:DR. Bettie BUSTOS
== END 2018-03-27 14:15 | disposition home or self-care (01) ==
LOC: LABBT 14:14
PROVIDERS: ATTEND Orthopaedic Surgery
DX: Z01.818 Encounter for other preprocedural examination (principal); M12.9 Arthropathy, unspecified; I49.1 Atrial premature depolarization; I45.10 Unspecified right bundle-branch block; R94.31 Abnormal electrocardiogram [ECG] [EKG]
CPT/HCPCS: 80048; 85025; 86850; 86900; 86901; 87081; 93005; 93010

== ENCOUNTER 2018-04-11 14:41 | Outpatient (CLI) | payer MEDICARE, BC ==
--- NOTE | 2018-04-11 16:25 | CT ---
CT RIGHT SHOULDER PERFORMED WITHOUT CONTRAST ENHANCEMENT: HISTORY: Right shoulder pain. FINDINGS: A total shoulder prosthesis is in place. Considerable scan artifact is noted. The glenoid component appears to be in good position. The humeral component is anteriorly dislocated and appears somewhat perched on the anterior margin of the glenoid component of this prosthesis on this examination. The re is thinning of the overall acromion and some lytic bony change of the distal clavicle. This could be on the basis of arthritis. I cannot exclude a neoplastic process. There is some air density ass ociated with what appears to be fluid. I am not certain of the time frame of the procedure or whethe r there has been some type of intervention performed. Infection is not excluded. A right lung mass is noted. This has been noted on previous exam. IMPRESSION: Anterior dislocation of the humeral component of the prosthesis, which is perched on the anterior mar gin of the glenoid component of the prosthesis. There is fluid within the joint space and a small am ount of air density and even a small amount of air density, which is in the superficial soft tissue, anterior to the deltoid muscle. This may be related to a recent surgical procedure. I cannot exclud e the possibility of infection. Clinical correlation is recommended. POS: [facility]
== END 2018-04-11 14:42 | disposition home or self-care (01) ==
LOC: SCSCT 14:41
PROVIDERS: ATTEND Orthopaedic Surgery
DX: T84.028A Dislocation of other internal joint prosthesis, initial encounter (principal); Z96.611 Presence of right artificial shoulder joint

== ENCOUNTER 2018-04-20 08:38 | Inpatient (IN) | payer MEDICARE, BC ==
[2018-04-19 10:40] VITALS: BMI 28.1
[2018-04-20] MEDS ORDERED: CEFAZOLIN/Water 2 GM/20 ML SYRINGE ONE (09:24)
[2018-04-20] MEDS ORDERED: Sodium Chloride 0.9% 100 ML ONE (09:24)
[2018-04-20] MEDS ORDERED: HYDROcodone/Acetaminophen 10/325 mg Tablet PO PRN ×4 (09:25→11:16)
[2018-04-20] MEDS ORDERED: traMADol HCl 50 MG TAB PO PRN ×4 (09:25→11:16)
[2018-04-20] MEDS ORDERED: clonazePAM 0.5 MG TAB PO PRN (09:26)
[2018-04-20] MEDS ORDERED: Vancomycin HCl 1.5 GM in Sodium Chloride 0.9% 250 ML 300 ML IVPB SCH ×2 (09:30→22:00)
[2018-04-20 09:38] LABS: #Basophils 0.1 thou/uL (0.0-0.2); #Eosinphils 0.2 thou/uL (0.0-0.7); #Monocytes 1.2 thou/uL (0.11-0.59); #Neutrophils 7.2 thou/uL (1.40-6.50); %Basophils 0.8 % (0.0-1.0); %Eosinophils 1.8 % (0.0-10.0); %Lymphocytes 10.3 % (21.0-51.0); %Monocytes 12.2 % (0.0-10.0); %Neutrophils 74.8 % (42.0-75.0); Hemoglobin 11.9 g/dL (14.0-18.0); Mean Corpuscular HGB CONC 33.4 g/dL (32.0-36.0); Mean Corpuscular Hemoglobin 30.4 pg (27.0-31.0); Mean Corpuscular Volume 91.1 fl (80.0-94.0); Mean Platelet Volume 6.7 fL (7.4-10.4); Platelet Count 355 thou/uL (130-400); RBC Distribution Width 13.3 % (11.5-14.5); Red Blood Cell (RBC) Count 3.91 mill/uL (4.70-6.10); White Blood Cell (WBC) Count 9.6 thou/uL (4.8-10.8)
[2018-04-20] MEDS ORDERED: Fentanyl 100 MCG/2 ML VIAL ONE (10:43)
[2018-04-20] MEDS ORDERED: Midazolam HCl 2 mg/2 ml Vial ONE (10:43)
[2018-04-20] MEDS ORDERED: Promethazine HCl 25 MG/ML VIAL IM PRN ×2 (11:16→14:18)
[2018-04-20] MEDS ORDERED: Zolpidem Tartrate 5 MG TAB PO PRN (11:16)
[2018-04-20] MEDS ORDERED: Ondansetron HCl/PF 4 MG/2 ML Vial IVP PRN ×2 (11:16→14:18)
[2018-04-20] MEDS ORDERED: Ketorolac Tromethamine 30 MG/ML VIAL IVP PRN (11:16)
[2018-04-20] MEDS ORDERED: Ropivacaine 0.2% 550 ML 550 ML NERVE BLCK SCH (11:16)
[2018-04-20] MEDS ORDERED: Fentanyl 100 MCG/2 ML VIAL IV PRN (11:17)
[2018-04-20] MEDS ORDERED: SUGAMMADEX SODIUM 200 MG/2 ML VIAL ONE (13:54)
[2018-04-20] MEDS ORDERED: Promethazine HCl 25 MG/ML VIAL SLOW IVP PRN (14:18)
[2018-04-20] MEDS ORDERED: Ropivacaine 0.2% HCl/PF (40 MG/20 ML VIAL) ONE (14:30)
[2018-04-20] MEDS ORDERED: Ropivacaine 0.5% HCl/PF (150 MG/30 ML VIAL) ONE (14:30)
--- NOTE | 2018-04-20 14:50 | RAD ---
RIGHT SHOULDER 2 VIEWS: HISTORY: Reverse shoulder surgery. COMPARISON: None. FINDINGS: Satisfactory appearance of right total shoulder arthroplasty. Surgical clips, postoperative gas, and edema. No hardware complication. IMPRESSION: 1. Satisfactory appearance right total shoulder arthroplasty. 2. Incidental rotation of the right side lung mass and layering effusion. POS: [facility]
[2018-04-20] MEDS ORDERED: PROPOFOL 200 MG/20 ML VIAL ONE (15:19)
[2018-04-20] MEDS ORDERED: Ketorolac Tromethamine 30 MG/ML VIAL ONE (15:19)
[2018-04-20] MEDS ORDERED: PHENYLEPHRINE-NS 100 MCG/ML 10 ML SYRINGE ONE (15:19)
[2018-04-20] MEDS ORDERED: Dexamethasone 20 MG/5 ML VIAL ONE (15:19)
[2018-04-20] MEDS ORDERED: Lidocaine 1% PF 5 ML VIAL ONE (15:19)
[2018-04-20] MEDS ORDERED: Ondansetron HCl/PF 4 MG/2 ML Vial ONE (15:19)
[2018-04-20] MEDS ORDERED: Glycopyrrolate 0.2 MG/ML 5 ML SYRINGE ONE (15:19)
[2018-04-20] MEDS: Dextrose 5 %-0.45 % NaCl 1,000 ML IV SCH ×2 (15:44→21:31)
[2018-04-20] MEDS: CEFAZOLIN/Water 2 GM/20 ML SYRINGE SLOW IVP SCH (17:06)
[2018-04-20] MEDS: Famotidine 20 MG TAB PO SCH (21:31)
--- NOTE | 2018-04-20 21:39 | OP ---
DATE OF PROCEDURE: 04/20/2018 TYPE OF PROCEDURE: Revision of right total shoulder replacement. SURGEON: Wm Roy M.D. PRODUCTION MAINTENANCE TECHNICIAN: None. BLOOD LOSS: 200 mL. SPECIMEN: None. DRAINS: None. COMPLICATIONS: None. DESCRIPTION OF PROCEDURE: The patient was taken to the operating room where general anesthesia was i nduced. Right arm was prepped and draped in usual sterile fashion from the chest to the fingertips. Then, I made a deltopectoral approach. Dissection was carried down to the deltopectoral and there w as no remaining subscapularis or rotator cuff to repair. I delivered the proximal humerus anteriorly through the wound and attempts to remove the proximal metaphyseal tray. However, the implant came f ree completely. I had to remove this implant to facilitate exposure of the glenoid. The glenosphere was removed through the screws (00:50) easily. The posterior screw was bent, but I was able t o get this out with some difficulty, the base plate itself actually was loose. There had been some m echanical disruption of the alvares. I am still not sure what happened he felt a pop after a fair ly trivial injury. After this was delivered, I decided to use a revision type baseplate. This was a 29 mm baseplate. I redirected my drill anteriorly. It appeared that the glenosphere shifted more h orizontal, so I placed a guidepin directed superiorly and then used this to drill over and measured a bout 38 mm, so I chose a 40 mm plus with 29 mm baseplate. This was the screw and revision type. I t hen reamed the inferior glenoid what was remaining of it. There was some bone missing, but I got sharmila n to good stable rim. The base plate was delivered with excellent compression, I used to adjust adju nct screws. There is 35 and 32 mm locking screw. The glenosphere was lateralized 36 mm deployed wit hout difficulty. I reamed the femur up with 5B Flex stem. After multiple trials, I elected +6 high offset tray with 6+6 deep dished polyethylene. This gave excellent stability throughout range of mot ion. Next, the trial was removed. Irrigation was performed. Permanent implants were impacted into place. Shoulder was reduced. The deltopectoral was repaired with 0 Vicryl, subcu with 2-0 Vicryl, a nd the skin was closed with bulmaro. Sterile dressings applied.
[2018-04-21] MEDS: CEFAZOLIN/Water 2 GM/20 ML SYRINGE SLOW IVP SCH (03:46)
[2018-04-21 07:22] VITALS: BP 151/84; TEMP 97.8
[2018-04-21] MEDS: Multivitamin W/ Minerals 1 TAB PO SCH ×2 (07:39→07:40)
[2018-04-21] MEDS: Famotidine 20 MG TAB PO SCH (07:41)
[2018-04-21] MEDS ORDERED: Enoxaparin Sodium 40 MG/0.4 ML SYRINGE SC SCH (09:00)
[2018-04-21] MEDS ORDERED: Calcium Carbonate + Vit D 1 TAB PO SCH (09:00)
== END 2018-04-21 10:03 | disposition home or self-care (01) | DRG 483 ==
LOC: SURG A 08:38 → SURG B 15:01
PROVIDERS: ADMIT Orthopaedic Surgery; ATTEND Orthopaedic Surgery
PROC: 0RRJ0JZ Replacement of Right Shoulder Joint with Synthetic Substitute, Open Approach (ICD-10-PCS; principal; 2018-04-20)
PROC: 0RPJ0JZ Removal of Synthetic Substitute from Right Shoulder Joint, Open Approach (ICD-10-PCS; 2018-04-20)
DX: S42.144A Nondisplaced fracture of glenoid cavity of scapula, right shoulder, initial encounter for closed fracture (principal); Z79.891 Long term (current) use of opiate analgesic; Z79.899 Other long term (current) drug therapy; Z85.118 Personal history of other malignant neoplasm of bronchus and lung; Z85.46 Personal history of malignant neoplasm of prostate; I10 Essential (primary) hypertension; Z87.19 Personal history of other diseases of the digestive system; Z87.891 Personal history of nicotine dependence; Z79.2 Long term (current) use of antibiotics; Z96.611 Presence of right artificial shoulder joint
CPT/HCPCS: 85025; A4306; C1713; J1100; J1650; J1885; J2001; J2250; J2405; J2704; J2795; J3010; J3370; J7050

== ENCOUNTER 2019-05-14 10:32 | Outpatient (CLI) | payer MEDICARE, BC ==
--- NOTE | 2019-05-14 10:48 | RAD ---
XR Chest Pa Lat @ POB History: Dyspnea Comparison: Radiograph 2018 Findings: Large right upper lobe mass. Chronic layering right effusion. Right reverse total shoulder arthroplasty. Left lung relatively clear. Impression: Similar appearance large right upper lobe mass.
== END 2019-05-14 10:33 | disposition home or self-care (01) ==
LOC: RAD 10:32
PROVIDERS: ATTEND Internal Medicine Critical Care Medicine
DX: R06.00 Dyspnea, unspecified (principal); R91.8 Other nonspecific abnormal finding of lung field
CPT/HCPCS: 71046

== ENCOUNTER 2019-07-16 06:56 | Day surgery (SDC) | payer MEDICARE, BC ==
[2019-07-13 10:45] VITALS: BMI 25.2
--- NOTE | 2019-07-13 11:50 | HP ---
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 He needs to start chemotherapy. He has a quickly growing tumor. They had been unable to place his MediPort in a timely fashion. I have been asked by Dr. Tima Palacios to see him to facilitate this. He has an MRI scan planned tomorrow. Plan is to place a MediPort around the left subclavian vein, PowerPort low-profile next week. IV sedation, local anesthesia as an outpatient. The patient has had laboratories, 05/30/2019. Basic metabolic profile; sodium 134, potassium 4.5, glucose 122, creatinine 1.28, GFR is 65, hemoglobin 12, hematocrit 37. The patient's echocardiogram scheduled with Dr. Cruz today and he had MRI at [facility] in [place] ALLERGIES: NONE. TOBACCO: None. ALCOHOL: None. MEDICATIONS: 1. Temazepam. 2. Metoprolol 25 mg 1/2 tablet b.i.d. 3. Tramadol p.r.n. 4. . The patient has had prostate cancer treated with radiation therapy beads. He had a cervical spine fracture, underwent ORIF with bone graft left lower back, rotator cuff surgery both shoulders, spinal stenosis, surgical decompression shoulder. He has been treated with chemotherapy for therapy. No evidence regarding that. REVIEW OF SYSTEMS: Noncontributory. PHYSICAL EXAMINATION: VITAL SIGNS: 5 feet 8 inches. HEAD, EARS EYES, NOSE, AND THROAT: ABDOMEN: Soft, nontender, scars per above history. CHEST: Right posterior lateral lower chest wall mass, probably 8 or 10 cm, firm, consistent with osteosarcoma, scar over this from childhood injury. ASSESSMENT AND PLAN: Osteosarcoma, right chest. PLAN: MediPort placement low-profile PowerPort. He understands the risks and benefits. Job ID: [id number]
[2019-07-16] MEDS ORDERED: Bupivacaine HCl 0.5%/Epinephrine 1:200,000/PF 30 ml Vial ONE (08:40)
[2019-07-16] MEDS ORDERED: Lidocaine 2% PF 5 ML VIAL ONE (08:40)
[2019-07-16] MEDS ORDERED: Propofol 500 MG/50 ML VIAL ONE (09:04)
--- NOTE | 2019-07-16 10:08 | RAD ---
Exam: Chest one view HISTORY:Port placement evaluation Comparison: 05/14/2019 FINDINGS: Rounded density in the lateral right mid lung zone remains. There is elevation of the right hemidiaph ragm with adjacent pleural-based density. No pneumothorax. Right chest port is in place with tip overlying cavoatrial junction. IMPRESSION: Status post right chest port placement, without postprocedural pneumothorax of significan ce visualized. Persistent low volume right hemithorax with masslike density in the lateral right hemithorax.
--- NOTE | 2019-07-16 11:10 | OP ---
DATE OF PROCEDURE: 07/16/2019 PREOPERATIVE DIAGNOSIS: Osteosarcoma, right posterolateral chest wall. POSTOPERATIVE DIAGNOSIS: Osteosarcoma, right posterolateral chest wall. PROCEDURE PERFORMED: MediPort low-profile PowerPort, right subclavian vein (history of left subclavian vein occlusion and intervention). ANESTHESIA: TIVA, local 0.5% Marcaine with epinephrine 30 mL mixed with 2% Xylocaine 10 mL. DESCRIPTION OF PROCEDURE: The patient was taken to the operating room, where under intravenous sedation, chest and neck were prepared with ChloraPrep and draped in routine fashion. Local anesthetic was infiltrated in the skin and subcutaneous tissue about the operative site. Infraclavicular approach was used to cannulate the right subclavian vein, J-wire threaded, trocar catheter removed. Skin site was enlarged sharply and the pocket created for the reservoir. Using blunt and sharp dissection, noting good hemostasis. Dilator and Peel-Away sheath placed over the J-wire into the subclavian vein. J-wire and dilator removed. Catheter placed through the jackie sheath which was removed. Fluoroscopically, the catheter tip placed in optimal position in the superior vena cava and catheter tailored to length and connected to the MediPort, which was placed in subcutaneous pocket and secured with 2 interrupted suture of 3-0 Prolene. Subcutaneous tissue was approximated with 3-0 Monocryl, skin with subdermal 4-0 Monocryl and [place]ry glue applied. MediPort was accessed with a Powers needle, aspirating blood, flushed with heparinized saline solution. Final fluoroscopic images revealed good port and catheter placement. Job ID: [id number]
[2019-07-16] MEDS ORDERED: PROPOFOL 200 MG/20 ML VIAL ONE (14:16)
[2019-07-16] MEDS ORDERED: ePHEDrine 50 MG/ML VIAL ONE (14:16)
[2019-07-16] MEDS ORDERED: Lidocaine 1% PF 5 ML VIAL ONE (14:16)
== END 2019-07-16 10:38 | disposition home or self-care (01) ==
LOC: SDC 06:56
PROVIDERS: ATTEND Specialist
PROC: 02HV33Z Insertion of Infusion Device into Superior Vena Cava, Percutaneous Approach (ICD-10-PCS; principal; 2019-07-16)
DX: C41.9 Malignant neoplasm of bone and articular cartilage, unspecified (principal); I10 Essential (primary) hypertension; Z86.010 Personal history of colon polyps; Z87.891 Personal history of nicotine dependence; Z79.899 Other long term (current) drug therapy
CPT/HCPCS: 36561; 71045; C1788; J0670; J0690; J1642; J2001; J2704; J3490

== ENCOUNTER 2019-08-29 11:18 | Day surgery (SDC) | payer MEDICARE, BC ==
[2019-08-29] MEDS ORDERED: diphenhydrAMINE 25 MG CAP PO SCH (12:15)
[2019-08-29] MEDS ORDERED: Acetaminophen 500 MG TAB PO SCH (12:15)
[2019-08-29 12:29] VITALS: BP 117/59; TEMP 97.3
[2019-08-30] MEDS ORDERED: Prevnar 13-Val Conj/PF 0.5 ML SYRINGE IM ONE (13:00)
== END 2019-08-30 07:45 | disposition home or self-care (01) ==
LOC: SDC/OP 11:18 → ONC 11:26 → SDC/OP 08-30 07:45
PROVIDERS: ATTEND Internal Medicine Hematology & Oncology
PROC: 30233N1 Transfusion of Nonautologous Red Blood Cells into Peripheral Vein, Percutaneous Approach (ICD-10-PCS; principal; 2019-08-29)
DX: D64.9 Anemia, unspecified (principal); D69.6 Thrombocytopenia, unspecified
CPT/HCPCS: 36415; 86850; 86870; 86900; 86901; 86922

== ENCOUNTER 2019-08-30 13:11 | Day surgery (SDC) | payer MEDICARE, BC ==
[2019-08-30] MEDS ORDERED: Acetaminophen 500 MG TAB PO SCH (13:30)
[2019-08-30] MEDS ORDERED: diphenhydrAMINE 25 MG CAP PO SCH (13:30)
[2019-08-30 21:43] VITALS: BP 108/58; TEMP 98.6
[2019-08-30 21:53] LABS: Hemoglobin 9.9 g/dL (14.0-18.0); Mean Corpuscular HGB CONC 32.8 g/dL (32.0-36.0); Mean Corpuscular Hemoglobin 28.7 pg (27.0-31.0); Mean Corpuscular Volume 87.3 fL (78.0-98.0); Mean Platelet Volume 6.6 fL (7.4-10.4); Platelet Count 562 thou/uL (130-400); Red Blood Cell (RBC) Count 3.44 mill/uL (4.70-6.10); White Blood Cell (WBC) Count 61.2 thou/uL (4.8-10.8)
[2019-08-30 22:01] LABS: Band 35 % (5-11); Lymphocytes 1 % (21-51); MDiff Complete? YES; Metamyelocyte 1 % (0-0); Monocytes 2 % (0-10); Neutrophil 61 % (42-75); Platelet Morphology Comment Appears Increased
== END 2019-08-30 21:44 | disposition home or self-care (01) ==
LOC: ONC/OP 13:11 → ONC 13:35 → ONC/OP 21:44
PROVIDERS: ATTEND Internal Medicine Hematology & Oncology
PROC: 30233N1 Transfusion of Nonautologous Red Blood Cells into Peripheral Vein, Percutaneous Approach (ICD-10-PCS; principal; 2019-08-30)
DX: D64.9 Anemia, unspecified (principal); D69.6 Thrombocytopenia, unspecified
CPT/HCPCS: 36415; 36430; 85025; 86850; 86860; 86870; 86880; 86900; 86901; 86905; 86922; 86970; 86978; P9016; Q0163

== ENCOUNTER 2019-09-28 08:39 | Day surgery (SDC) | payer MEDICARE, BC ==
[2019-09-28] MEDS ORDERED: Acetaminophen 500 MG TAB PO SCH (09:00)
[2019-09-28] MEDS ORDERED: diphenhydrAMINE 25 MG CAP PO SCH (09:00)
[2019-09-28] MEDS ORDERED: Sodium Chloride 0.9% 20 ML ONE (09:31)
[2019-09-28 12:37] LABS: Hemoglobin 7.9 g/dL (14.0-18.0)
[2019-09-28 15:05] VITALS: BP 130/61; TEMP 98
== END 2019-09-28 15:05 | disposition home or self-care (01) ==
LOC: ONC/OP 08:39
PROVIDERS: ATTEND Internal Medicine Hematology & Oncology
PROC: 30233R1 Transfusion of Nonautologous Platelets into Peripheral Vein, Percutaneous Approach (ICD-10-PCS; principal; 2019-09-28)
PROC: 30233N1 Transfusion of Nonautologous Red Blood Cells into Peripheral Vein, Percutaneous Approach (ICD-10-PCS; 2019-09-28)
DX: D64.9 Anemia, unspecified (principal); D69.6 Thrombocytopenia, unspecified
CPT/HCPCS: 36430; 80053; 82248; 83615; 83735; 84100; 84550; 85014; 85018; 86850; 86870; 86900; 86901; 86922; J1642; P9016; Q0163

== ENCOUNTER 2019-10-27 03:31 | Emergency (ER) | payer MEDICARE, BC ==
[2019-10-27 12:00] LABS: Bacteria/HPF None Seen HPF (None Seen); Bilirubin Negative (Negative); Blood, Urine 2+ (Negative); Clarity Clear (Clear); Glucose, Urine (Dipstick) Normal (Negative); Leukocyte Negative Leu/uL (Negative); Nitrite Negative (Negative); Protein, Urine (Dipstick) Negative (Neg-Trace); RBC/HPF 21-50 HPF (0-3); Squamous Epithelial None Seen HPF (0-3); Urobilinogen Normal mg/dL (Less than 2)
== END 2019-10-27 06:28 | disposition home or self-care (01) ==
LOC: ERS 03:31
DX: R33.9 Retention of urine, unspecified (principal)
CPT/HCPCS: 51702; 81003; 81015; 87086

== ENCOUNTER 2019-11-07 16:17 | Inpatient (IN) | payer MEDICARE, BC ==
[2019-11-07 17:12] LABS: #Eosinphils 0.4 thou/uL (0.0-0.7); #Lymphocytes 0.6 thou/uL (1.20-3.40); #Monocytes 0.8 thou/uL (0.11-0.59); #Neutrophils 6.1 thou/uL (1.40-6.50); %Basophils 0.5 % (0.0-1.0); %Eosinophils 4.8 % (0.0-10.0); %Lymphocytes 7.7 % (21.0-51.0); %Monocytes 10.4 % (0.0-10.0); %Neutrophils 76.6 % (42.0-75.0); Mean Corpuscular HGB CONC 32.1 g/dL (32.0-36.0); Mean Corpuscular Volume 87.3 fL (78.0-98.0); Mean Platelet Volume 6.3 fL (7.4-10.4); Platelet Count 449 thou/uL (130-400); RBC Distribution Width 16.2 % (11.5-14.5); Red Blood Cell (RBC) Count 3.21 mill/uL (4.70-6.10)
[2019-11-07 17:18] LABS: INR-International Normal Ratio 1.1; PTT 32.2 SEC (22.9-36.1); Prothrombin Time 14.1 SEC (12.0-14.7)
[2019-11-07 17:26] LABS: D-Dimer Test 5.64 *mcg/mL (0.27-0.43)
[2019-11-07 17:38] LABS: ALT (SGPT) 25 U/L (8-55); AST (SGOT) 28 U/L (5-34); Albumin 3.4 g/dL (3.4-4.8); Alkaline Phosphatase 231 U/L (40-110); Anion Gap 15 mmol/L (10-20); BUN (Urea Nitrogen) 22 mg/dL (8.4-25.7); Bilirubin, Total 0.3 mg/dL (0.2-1.2); Calc. Creatinine Clearance 0 mL/min (70-130); Calcium 9.7 mg/dL (7.8-10.44); Carbon Dioxide 26 mmol/L (23-31); Chloride 97 mmol/L (98-107); Estimated GFR-MDRD 59; Globulin 3.6 g/dL (2.4-3.5); Glucose 107 mg/dL (83-110); Potassium 4.1 mmol/L (3.5-5.1); Sodium 134 mmol/L (136-145)
[2019-11-07] MEDS ORDERED: Diltiazem 125 MG/25 ML ONE (18:51)
--- NOTE | 2019-11-07 19:22 | CT ---
CTA CHEST WITH CONTRAST: 11/07/19 Axial tomograms obtained following pulmonary angio protocol with multiplanar reconstruction and 3D po stprocessing. INDICATIONS: Hypertension. Post open thoracotomy for sarcoma resection according to history. Tachycardia. Chest pa in. Comparison made to CTA chest 12/22/17. FINDINGS: There is a pleural based mass peripherally in the right upper lobe which was noted on the prior exam is again seen. Parenchymal stranding extending from the right suprahilar region to this mass has a si milar appearance to the prior study. Size of this mass is similar to the prior exam measuring 4.0 cm in the AP dimension in axial plane. 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 Pulmonary arteries otherwise show normal opacification. No evidence of acute pulmonary embo rasheed. Thoracic aorta shows atherosclerotic change without dissection. Mild aneurysmal dilatation of th e ascending aorta with diameter measured at 4.1 cm, similar to prior exam. There is a right pleural effusion which appears loculated. There is loculated fluid see in the tile shader ior chest wall probably related to recent thoracotomy. Tiny gas pockets are seen along the border of this loculated fluid collection. This could represent loculated hematoma, seroma, or developing absce ss at the operative site. Left lung appears clear. Incidentally noted on images through the upper abdomen are numerous tiny calcified gallstones seen in the periphery of a mildly contracted gallbladder. IMPRESSION: 1. No evidence of acute pulmonary embolus. 2. Pleural based mass lesion in the right upper lobe similar appearance to the prior exam. 3. Postop thoracotomy changes seen posteriorly in the right lower chest. There is a loculated ef fusion in the right lung base. There is a loculated fluid collection in the right lung base extending into the posterior chest wall at the operative site as described above. POS: [facility]
[2019-11-07] MEDS ORDERED: Bisacodyl 5 MG TAB PO PRN (20:58)
[2019-11-07] MEDS ORDERED: HYDROcodone/Acetaminophen 5/325 mg Tablet PO PRN (20:58)
[2019-11-07] MEDS ORDERED: Acetaminophen 325 MG TAB PO PRN (20:58)
[2019-11-07] MEDS ORDERED: Ondansetron PF 4 MG/2 ML Vial IVP PRN (20:58)
[2019-11-07] MEDS ORDERED: traMADol HCl 50 MG TAB PO PRN (21:05)
[2019-11-07] MEDS ORDERED: clonazePAM 0.5 MG TAB PO PRN (21:05)
--- NOTE | 2019-11-07 21:43 | HP ---
PRESENTING COMPLAINT: Referred for tachycardia. HISTORY OF PRESENT ILLNESS: Mr. Darnell Swanson is a 69-year-old with past medical historyof hypertension, previously on low-dose metoprolol, history of lung cancer treated with radiation as well as immunotherapy with Keytruda, currently in remission. Recent history of thoracic cavity sarcoma, status post thoracic cavity excision at [facility] 3 weeks ago with post surgery urinary retention requiring transient Salmon placement. The patient was seen at the urology clinic today for Salmon catheter removal after being started on Flomax and noted to have elevated heart rate and sent to the ED. In the ED, he was noted with atrial fibrillation with RVR with rate up to 150s. He was given loading dose of Cardizem and his heart rate has improved to 110 to 140s now. The patient denies any palpitation. He denies any chest pain. He admits to weakness, which is unchanged since post surgery. He denies any nausea or vomiting. He denies any recent diarrhea. does state that the patient has colitis since receiving chemo pre sarcoma excision with doxorubicin. PAST MEDICAL HISTORY: Significant for lung cancer, on treatment, recent thoracic cavity sarcoma excision, previous hypertension, recent BPH with urinary retention-Salmon catheter removed today. PAST SURGICAL HISTORY: Include recent sarcoma excision 3 weeks ago. FAMILY HISTORY: No history of CAD or diabetes. SOCIAL HISTORY: The patient is a former smoker, quit over 30 years ago. Resides in a community with his spouse. He is fully functional at baseline although with increasing weakness. He denies regular alcohol or illicit drug use. REVIEW OF SYSTEMS: All systems reviewed x14 were negative except as mentioned above. PHYSICAL EXAMINATION: VITAL SIGNS: Current vitals blood pressure of 103/53, pulse of 97, ranging to 110, respiratory rate of 20, O2 saturation is 97% on room air. GENERAL: Thin built, chronically ill-looking male, not in any distress. HEENT: Pupils equal, reactive to light. Anicteric. [place] conjunctivae. NECK: No JVD. No carotid bruit. RESPIRATORY: Good air entry. No crepitations. BACK: Midline posterior chest wall sutures in-situ. No tenderness around the area. CARDIOVASCULAR: S1, S2. Irregular rhythm. Tachycardic. GI: Abdomen full, soft, nontender. Bowel sounds positive. EXTREMITIES: No calf tenderness. No pedal edema. NEURO: Patient is alert, conversant. LABORATORY DATA: WBC 8.0, hemoglobin 9, platelet 449. INR 1.1. D-dimer 5.6, PTT 32. Sodium 134, potassium 4.1, creatinine 1.22, AST, ALT normal, alkaline phosphatase 231. BNP of 84. Troponin less than 0.01. CT of the chest shows pleural base mass peripherally in the right upper lobe, which he was noted in previous exam. Chronic occlusion of the right upper lobe pulmonary arteries again seen as previously described, right pleural effusion which appears loculated in the posterior chest wall related to recent thoracotomy. Tiny gas pocket as seen along the border of this fluid. No evidence of pulmonary embolism. EKG shows atrial flutter with variable block at 127 beats per minute on EKG. IMPRESSION: 1. New onset atrial fibrillation. 2. Persistent right pleural effusion. 3. Benign prostatic hypertrophy - stable. PLAN: We will admit the patient to the CCU. We will manage the patient for the following. 1. New onset atrial fibrillation, likely related to recent thoracotomy. We will obtain TSH as well as magnesium level. We will consult Cardiology. The patient given digoxin. Given lung cancer it might be better to continue digoxin, we switch to p.o. for now. If elevated RVR overnight, we will start the patient on amiodarone drip. If blood pressure remains stable try low dose beta kenna. 2. We will start in the start the patient on Eliquis 2.5 mg b.i.d. 3. Benign prostatic hypertrophy. Continue Flomax. We will monitor urine output and voiding during hospital stay. 4. Right pleural effusion due to recent thoracotomy. We will monitor for now. If shortness of breath might need pleural tap. 5. DVT prophylaxis. We initiate the patient on Eliquis. 6. Advanced directives discussed with patient and who was mainly providing history. The patient wishes to be full code at this time. Total time spent in review of record, discussion with patient and family and answering questions greater than 70 minutes. Job ID: [id number]
[2019-11-07 21:47] LABS: Iron 23 ug/dL (65-175); Iron Binding Capacity, Total 165 mcg/dL (261-462)
[2019-11-08 00:34] VITALS: BMI 25.7
[2019-11-08] MEDS: Famotidine 20 MG TAB PO SCH ×2 (06:10→10:37)
[2019-11-08 06:14] LABS: #Eosinphils 0.4 thou/uL (0.0-0.7); #Lymphocytes 0.5 thou/uL (1.20-3.40); #Monocytes 0.6 thou/uL (0.11-0.59); #Neutrophils 4.9 thou/uL (1.40-6.50); %Basophils 0.8 % (0.0-1.0); %Eosinophils 6.2 % (0.0-10.0); %Lymphocytes 8.4 % (21.0-51.0); %Monocytes 9.5 % (0.0-10.0); %Neutrophils 75.2 % (42.0-75.0); Hemoglobin 9.1 g/dL (14.0-18.0); Mean Corpuscular HGB CONC 32.3 g/dL (32.0-36.0); Mean Corpuscular Hemoglobin 28.3 pg (27.0-31.0); Mean Corpuscular Volume 87.7 fL (78.0-98.0); Mean Platelet Volume 6.2 fL (7.4-10.4); Platelet Count 424 thou/uL (130-400); RBC Distribution Width 16.1 % (11.5-14.5); White Blood Cell (WBC) Count 6.5 thou/uL (4.8-10.8)
[2019-11-08 06:35] LABS: Anion Gap 11 mmol/L (10-20); BUN (Urea Nitrogen) 17 mg/dL (8.4-25.7); Calc. Creatinine Clearance 72 mL/min (70-130); Calcium 9.5 mg/dL (7.8-10.44); Carbon Dioxide 26 mmol/L (23-31); Chloride 102 mmol/L (98-107); Estimated GFR-MDRD 77; Glucose 91 mg/dL (83-110); Potassium 4.1 mmol/L (3.5-5.1); Sodium 135 mmol/L (136-145)
[2019-11-08 06:38] LABS: Troponin I 0.061 ng/mL (< 0.028)
[2019-11-08] MEDS ORDERED: Tamsulosin HCl 0.4 MG CAP PO SCH (09:00)
[2019-11-08] MEDS ORDERED: Digoxin 0.25 MG TAB PO SCH (09:00)
[2019-11-08] MEDS ORDERED: Apixaban 2.5 MG TAB PO SCH (09:00)
[2019-11-08] MEDS ORDERED: Senokot 8.6 MG TAB PO SCH (09:00)
[2019-11-08] MEDS: Gabapentin 100 MG CAP PO SCH ×2 (10:37→16:28)
[2019-11-08] MEDS: Methocarbamol 500 MG TAB PO SCH ×2 (10:47→16:28)
--- NOTE | 2019-11-08 11:22 | PDOC.HOSPP ---
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 He had a some post-operative urinary retention and had an indwelling guerra catheter that was being removed yesterday. At that time, he was noted to have an irregular rhythm and tachycardic. Today, he reports that he is feeling much better and is ready to go home in an attempt to get to his follow up appointments with his surgeons at [facility] tomorrow afternoon. - Objective Vital Signs & Weight: Vital Signs (12 hours) Temp Pulse Resp BP Pulse Ox 11/08/19 07:35 97.6 F 108 H 17 143/72 H 99 11/08/19 04:39 97.3 F L 102 H 16 164/74 H 97 11/07/19 23:40 98 Weight Weight 159 lb 12.8 oz I&O: 11/07/19 11/08/19 11/09/19 06:59 06:59 06:59 Intake Total 240 Balance 240 Result Diagrams: 11/08/19 05:55 11/08/19 05:55 Hospitalist ROS - Medication Medications: Active Medications Generic Name Dose Route Start Last Admin Trade Name Freq PRN Reason Stop Dose Admin Apixaban 2.5 mg 11/08/19 09:00 11/08/19 10:37 Eliquis PO 2.5 mg BID KAYCEE Administration Digoxin 0.25 mg 11/08/19 09:00 11/08/19 10:36 Lanoxin PO 0.25 mg DAILY KAYCEE Administration Famotidine 20 mg 11/07/19 21:00 11/08/19 10:37 Pepcid PO 20 mg BID KAYCEE Administration Gabapentin 100 mg 11/08/19 09:00 11/08/19 10:37 Neurontin PO 100 mg TID KAYCEE Administration Methocarbamol 500 mg 11/08/19 09:00 11/08/19 10:47 Robaxin PO Not Given TID KAYCEE Senna 2 tab 11/08/19 09:00 11/08/19 10:48 Senokot PO Not Given BID KAYCEE Tamsulosin HCl 0.4 mg 11/08/19 09:00 11/08/19 10:48 Flomax PO Not Given QAM KAYCEE - Exam General Appearance: NAD, awake alert Heart: RRR, no murmur, no gallops, no rubs Heart - other findings: tachycardic Respiratory: no wheezes, no rales, no ronchi Respiratory - other findings: diminished breath sounds on the right base Extremities: no edema Hosp A/P (1) Atrial fibrillation with RVR Code(s): I48.91 - UNSPECIFIED ATRIAL FIBRILLATION Status: Acute - Plan Atrial Fibrillation with RVR: Patient has returned back to sinus rhythm. Cardiology consulted. Currently on Eliquis and Digoxin. Awaiting Echo report. Continue on home flomax, amitryptiline, and gabapentin. PUD Prophylaxis: On pepcid. DVT Prophylaxis: On Eliquis. Will communicate with Dr. Cruz and plan to discharge patient if he gives clearance.
[2019-11-08 15:43] VITALS: BP 139/72; TEMP 97.8
--- NOTE | 2019-11-08 18:56 | CON ---
DATE OF CONSULTATION: 11/08/2019 REASON FOR CONSULTATION: Atrial fibrillation. HISTORY OF PRESENT ILLNESS: Mr. Patrick is a very pleasant 69-year-old gentleman, whom I saw and evaluated over 3 years ago. He recently was seen and evaluated in [facility] Calle's office for urinary retention. He had a Salmon placed after recent surgery in [place]. He was found to be tachycardic with heart rate in the 150s. He is also hypotensive with blood pressure in the 80s. Recommended he proceed to the emergency room. He was subsequently admitted. While on the telemetry monitoring floor, he converted back to sinus rhythm. He has a similar episode in 2016, where he was admitted for atrial fibrillation and spontaneously converted to sinus rhythm. He denies any recent heart flutters, palpitations, or associated symptoms. He has no previous history of consistent atrial fibrillation. PAST MEDICAL HISTORY: Lung cancer, sarcoma, hypertension, BPH with urinary retention, recent excision of thoracic cavity sarcoma. SOCIAL HISTORY: Previous tobacco abuse. HOME MEDICATIONS: 1. Tramadol. 2. Clonazepam. 3. Tamsulosin. 4. Metoprolol. 5. Gabapentin. 6. Aspirin. REVIEW OF SYSTEMS: A 10-point review of systems is reviewed and as above, otherwise negative. PHYSICAL EXAMINATION: GENERAL: Patient is a pleasant gentleman, who is in no acute distress. The patient appears their stated age. VITAL SIGNS: Blood pressure 143/69, pulse 80, respirations 20. NEUROLOGIC: The patient is alert and oriented x3 with no focal neurologic deficits. HEENT: Sclerae without icterus. Mouth has moist mucous membranes with normal pallor. NECK: No JVD. Carotid upstroke brisk. No bruits bilaterally. LUNGS: Clear to auscultation with unlabored respirations. BACK: No scoliosis or kyphosis. CARDIAC: Regular rate and rhythm with normal S1 and S2. No S3 or S4 noted. No significant rubs, murmurs, thrills, or gallops noted throughout the precordium. PMI is not displaced. There is no parasternal heave. ABDOMEN: Soft, nontender, nondistended. No peritoneal signs present. No hepatosplenomegaly. No abnormal striae. EXTREMITIES: 2+ femoral and 2+ dorsalis pedis pulses. No cyanosis, clubbing, or edema. SKIN: No gross abnormalities. PERTINENT LABORATORY DATA: Hemoglobin 9.1. Creatinine 0.96, phosphorus 1.7, magnesium 2.0. IMPRESSION: 1. Paroxysmal atrial fibrillation. 2. Lung cancer. 3. Recent sarcoma excision. RECOMMENDATIONS: This is Mr. Patrick's second presentation for atrial fibrillation. I did recommend proceeding with anticoagulation therapy given his presentation. He is opposed. They also discussed with his . They are concerned about adding new medications to his current regime at this time. He also states he and is concerned about being on anticoagulation treatment. I did state there was a risk of stroke. Therefore, we discussed proceeding with full-dose aspirin therapy in addition to a 3-week event recorder to assess for any paroxysmal atrial fibrillation episodes. If this is negative, may consider an implantable loop recorder. He was amenable to the above. Plan is to follow up with Mr. Patrick in the next 2 to 3 weeks. Job ID: [id number]
[2019-11-08] MEDS ORDERED: Amitriptyline HCl 25 MG TAB PO SCH (21:00)
--- NOTE | 2019-11-09 07:03 | PQF ---
Sky Patrick ALANNAH HUANG MD [id number] CLINICAL DOCUMENTATION CLARIFICATION FORM: POST DISCHARGE Addendum to original discharge summary date: ____ Late entry note date: __ DATE: 11/09/2019 ATTN: ALANNAH HUANG MD Please exercise your independent, professional judgment in responding to the clarification form. Clinical indicators are provided on the bottom of this form for your review Please check appropriate box(s): [ ] Atrial fibrillation due to recent thoracotomy [ ] Atrial fibrillation not due to recent thoracotomy [ ] Other diagnosis [ x ] Unable to determine CLINICAL INDICATORS - SIGNS / SYMPTOMS / LABS - New onset atrial fibrillation, likely related to recent thoracotomy- H&P, , Yoni Louis MD - Right pleural effusion due to recent thoracotomy-H&P, 11/07, Yoni Louis MD - unspecified atria fibrillation: Acute- Hospital PN, 11/08, ALANNAH HUANG MD - Paroxysmal atrial fibrillation- Consultation report, 11/08, Anthony Rivas MD RISK FACTORS - Recent sarcoma excision- Consultation report, 11/08, Anthony Rivas MD - Lung cancer-Consultation report, 11/08, Anthony Rivas MD TREATMENT: - Apixaban.PO- JAN, 11/08 - Diltiazem.IV-JAN, 11/07 (This form is maintained as a part of the permanent medical record) 2014 [employer]. All Rights Reserved Kaylene Conner [not provided] [not provided] CARMELITAD
--- NOTE | 2019-11-09 14:54 | DIS ---
DATE OF ADMISSION: 11/07/2019 DATE OF DISCHARGE: 11/08/2019 DISCHARGE DIAGNOSES: 1. Atrial fibrillation. 2. Lung cancer. 3. Recent excision of lung sarcoma. HISTORY OF PRESENT ILLNESS: This patient is a 69-year-old male with a history that is complicated by several prior cancers including lung cancer for which he managed to endure successfully. However, subsequently, recently had a large sarcoma that required an extreme surgery of the thorax, requiring a very large incision through multiple ribs to remove a large section of sarcoma involving rib and diaphragm. This all occurred at [facility] and patient was recovering from this procedure and was actually due the following day to go back for followup with all of his surgeons. As a complication of all that surgery, he had some urinary retention and he presented to Dr. Calle's office to have the Salmon catheter removed as an outpatient, where he was noted to have some hypotension with above systolic in the 80s and atrial fibrillation with rapid response. He was subsequently referred to the emergency department. There, the patient had CT angio of the chest, which was unremarkable. He was given digoxin, appeared to convert to sinus rhythm. HOSPITAL COURSE: The patient was admitted. He was subsequently seen by Dr. Cruz, who is his primary rap artist. He recommended anticoagulation. However, in the setting of the recent surgery and complicated medical situation, the patient declined. He was aware of the potential risk of a stroke and Dr. Cruz recommended full dose of aspirin. In addition, three week event recorder will be arranged for the patient. Echocardiogram was a technically difficult study with poor endocardial definition. EF was 50% to 55%. Otherwise, no significant anomalies or abnormalities were noted. With that, the patient was felt to be stable for discharge. On the day of discharge, temperature was 97.8, pulse 100, respirations 18, O2 saturation was 98% on room air, BP 139/72. He was awake and alert. Heart was tachycardic. Lungs were diminished, more so on the right at the base. Abdomen was benign. Extremities, no edema. DISPOSITION: The patient is discharged to home in stable condition. ACTIVITY: As tolerated. DIET: He will remain on a heart healthy diet. DISCHARGE MEDICATIONS: He will be on: 1. Metoprolol 12.5 mg b.i.d. 2. Aspirin 81 mg daily. 3. He will continue his other usual home medications without change. FOLLOWUP: He is to follow up at [facility] tomorrow as scheduled. He will also follow up with Dr. Dieudonne Liz in [address] Cruz, next available. He can return to the hospital should he have any problems prior to that time. TIME SPENT: Total time in discharge activities was 39 minutes. Job ID: [id number]
== END 2019-11-08 17:13 | disposition home or self-care (01) | DRG 309 ==
LOC: ERS 16:17 → 2NO 22:22
PROVIDERS: ADMIT Internal Medicine; ATTEND Internal Medicine
DX: I48.0 Paroxysmal atrial fibrillation (principal); C34.90 Malignant neoplasm of unspecified part of unspecified bronchus or lung; C78.00 Secondary malignant neoplasm of unspecified lung; J91.8 Pleural effusion in other conditions classified elsewhere; I10 Essential (primary) hypertension; N40.0 Benign prostatic hyperplasia without lower urinary tract symptoms; I95.9 Hypotension, unspecified; Z85.46 Personal history of malignant neoplasm of prostate
CPT/HCPCS: 36415; 71275; 80048; 80053; 83540; 83550; 83735; 83880; 84443; 84484; 85025; 85379; 85610; 85730; 93005; 93306; 96361; 96374

== ENCOUNTER 2020-02-18 09:05 | Outpatient (CLI) | payer MEDICARE, BC ==
[2020-02-18] MEDS ORDERED: Magnevist 469MG/ML 20 ML VIAL ONE ×3 (09:41)
--- NOTE | 2020-02-18 14:13 | MRI ---
MRI CERVICAL SPINE WITH AND WITHOUT CONTRAST: INDICATION: Malignant neoplasm of lung. Secondary malignant neoplasm of bone. COMPARISON: No comparison. FINDINGS: Moderate degenerative changes of the cervical spine. The postoperative changes are also apparent. D egenerative disk changes are pronounced at C3-4, C4-5, and C5-6 with loss of disk space. Degenerativ e osteophytes are seen from the vertebrae. Posterior spondylosis and disk bulge at these levels. Po sterior listhesis at C3-4 measuring 2-3 mm. Fusion procedure at C6-7. Posterior artifact is present due to posterior surgical device. The osseous structures exhibit normal homogeneous signal. No evidence of osseous metastasis. At C2-3, posterior disk bulge and spondylosis impinge on a mildly flattened anterior cord. No signif icant foraminal stenosis. At C3-4, posterior listhesis as noted above. This is associated with diffuse disk bulge and spondylo sis which compresses the cord. Moderate cervical canal stenosis and cord compression. Bilateral for aminal stenosis at this level, more prominent on the right. At C4-5, disk bulge and spondylitic change mildly compress the anterior cord. Moderate cervical aline l stenosis. Bilateral foraminal stenosis. C5-6 fusion changes. No evidence of cord impingement. C6-7 fusion changes with no evidence of disk bulge or cord impingement. Evaluation of the spinal can al at these levels is severely limited due to artifact from the posterior device. IMPRESSION: 1. Degenerative and postoperative changes of the cervical spine. Posterior metallic devices obscure detail below C5. 2. Disk bulge and spondylosis result in cervical canal stenosis at C2-3, C3-4, and C4-5. Cord compr ession is most pronounced at C3-4. Cord signal appears normally preserved, although the cord cannot be adequately evaluated below C5. POS: [facility]
--- NOTE | 2020-02-18 14:15 | RAD ---
CHEST 2 VIEWS: Date: 02/18/2020 HISTORY: Malignant neoplasm of bone. COMPARISON: CT chest dated 11/07/2019. FINDINGS: Chronic loculated right pleural effusion. Right upper lobe mass is similar. Left lung is relatively clear. No pneumothorax. Cardiac silhouette and mediastinal contour is similar . Similar appearance of the radiolucent posterior spinal fusion hardware with connecting radiolucent ro ds. IMPRESSION: 1. No significant interval size increase in the right upper lobe mass. 2. Loculated right layering pleural effusion. POS: [facility]
--- NOTE | 2020-02-18 14:30 | RAD ---
TWO VIEWS OF THE THORACIC SPINE: COMPARISON: MRI thoracic spine 02/18/2020. HISTORY: Malignant neoplasm of the bone. 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 History of prostate cancer an d lung cancer. FINDINGS: Two views of the thoracic spine show wedge compression deformity of the L1 vertebral body. There is hardware in the inferior aspect of the lumbar spine. The vertebral bodies demonstrate normal alignme nt without subluxation. The lower right ribs have been removed. This is likely the location where the fluid collection is se en at the thoracolumbar region to the right of the spine. Postsurgical changes are seen in at least one of the shoulders and also in the cervical spine. Degen erative changes are seen in the lower thoracic spine and upper lumbar spine. IMPRESSION: 1. Postsurgical changes of the lumbar spine. 2. Resection of the inferior right posterior ribs. POS: [facility]
--- NOTE | 2020-02-18 15:20 | MRI ---
MRI THORACIC SPINE WITH AND WITHOUT CONTRAST: INDICATION: Malignant neoplasm of lung. Secondary malignant neoplasm of bone. COMPARISON: Correlation is made to CT chest 11/07/2019. FINDINGS: There is mild loss of height of the T8 vertebra. There is abnormal signal in the T8 vertebra with he terogeneous T1 and T2 signal. There is a cavitary portion in the posterior aspect of this vertebral body which does exhibit peripheral enhancement. No evidence of significant change in this vertebra when compared to the CT of 11/07/2019. The other visualized thoracic vertebrae exhibit normal signal. No other evidence of thoracic metasta sis identified. There are degenerative changes and postoperative changes throughout the thoracic spine. There are pe dicle screws at multiple levels. There is loss of disk space with degenerative disk changes at multi ple levels. There are disk bulges seen at multiple thoracic levels. Disk bulges flatten the thecal sac and effac e the anterior subarachnoid space at T2-3, T4-5, T5-6, T6-7, T7-T8, and T8-T9. There is mild disk bu lge at T11-T12. Thoracic cord signal appears normally maintained. IMPRESSION: 1. Abnormal signal with mild loss of height of the T8 vertebra. This corresponds to CT of thoracic spine 11/07/2019 with no significant interval change in the height or appearance of this vertebral odalys dy. There is some heterogeneous enhancement within this vertebral body and findings are concerning f or metastatic disease, possibly partially treated. 2. No other evidence of osseous metastasis within the thoracic spine. 3. Degenerative and postoperative changes at multiple levels of the thoracic spine. Disk bulge at s everal levels flatten the anterior thecal sac as described above. POS: [facility]
== END 2020-02-18 09:06 | disposition home or self-care (01) ==
LOC: BICMRI 09:05
PROVIDERS: ATTEND Internal Medicine Hematology & Oncology
DX: C79.51 Secondary malignant neoplasm of bone (principal); J90 Pleural effusion, not elsewhere classified; M47.814 Spondylosis without myelopathy or radiculopathy, thoracic region; M51.84 Other intervertebral disc disorders, thoracic region; M47.12 Other spondylosis with myelopathy, cervical region; M50.01 Cervical disc disorder with myelopathy, high cervical region; R93.7 Abnormal findings on diagnostic imaging of other parts of musculoskeletal system; Z90.89 Acquired absence of other organs; Z98.890 Other specified postprocedural states; Z98.1 Arthrodesis status
CPT/HCPCS: 71046; 72070; 72156; 72157; 72158; 82565; A9579

== ENCOUNTER 2020-04-22 07:37 | Outpatient (CLI) | payer MEDICARE, BC ==
--- NOTE | 2020-04-22 12:36 | PET ---
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 Restaging. COMPARISON: 04/20/2016. FINDINGS: Physiologic uptake of radiotracer throughout the enteric system and along each urinary tract. Muscula r uptake around the shoulders and right shoulder prosthesis. Extensive parenchymal scarring is present throughout the right lung. A focal peripheral area of massl mia consolidation abutting the pleural at the anterolateral aspect of the right upper lobe is 2.9 cm greatest diameter, stable compared to CT from 11/07/2019. Max SUV at the posterior periphery is 2. 3. No hypermetabolic mediastinal adenopathy is evident. No hypermetabolic skeletal lesions. Extensive postoperative changes of the shoulders and spine. A triangular fluid collection involving t he right side of the spine and right posterior medial chest wall centered at the lower thoracic spine is not significantly changed in appearance from prior CT, measuring 9.9 cm greatest width x 4.8 cm depth on today's exam. No associated hypermetabolic activity. Nondiagnostic CT attenuation correction images show prominent calcification throughout the arterial s tructures. Metallic seeds at the prostate bed. Dystrophic calcification associated with the left eye musculature partially visualized. IMPRESSION : 1. No scintigraphic evidence of residual or recurrent neoplasm. 2. Extensive postoperative changes, fluid collections, and other chronic-type findings are overall s table. 3. Atherosclerosis. Transcribed Date/Time: 04/22/2020 1:15 PM
== END 2020-04-22 07:38 | disposition home or self-care (01) ==
LOC: PET 07:37
PROVIDERS: ATTEND Radiology Radiation Oncology
DX: C49.6 Malignant neoplasm of connective and soft tissue of trunk, unspecified (principal); I70.90 Unspecified atherosclerosis; Z98.890 Other specified postprocedural states; Z85.118 Personal history of other malignant neoplasm of bronchus and lung; Z85.46 Personal history of malignant neoplasm of prostate
CPT/HCPCS: 78815; A9552